=== PATIENT | male | born 1950 | race Caucasian/White ===

== ENCOUNTER → 2016-06-12 | Outpatient (CLI) | payer OTHER, BC ==
[~2016-06-12] MED LIST: ACET-1256 PO; ALL300 PO; AMLO-114 PO; DSWCR TOP; GARL400T4 PO; IRBE1TAB48 PO; KETO2CRE14 TOP; METR0.75 TOP; MOMETASONE 0.1% TOP; MULT-506 PO; OXYC-57 PO; PRVC10 PO; TPRSR/100 PO; URC10 PO; WARF2TAB PO
[2016-06-12 12:29] LABS: BASO % 0.6 %; BASO ABS # 0.04 K/uL (0-0.2); COMPLETE YES; EOS % 4.2 %; HEMATOCRIT 43.3 % (42-52); IG% 0.2 %; LYMPH % 33.2 %; LYMPH ABS # 2.14 K/uL (1.2-3.4); MEAN CORPUSCULAR HEMOGLOBIN 35.1 pg (25-34); MEAN CORPUSCULAR HGB CONC 35.1 g/dl (32-36); MONO % 10.4 %; NEUT % 51.4 %; PLATELET COUNT 215 K/uL (130-400); RED BLOOD COUNT 4.33 M/uL (4.7-6.1); WHITE BLOOD COUNT 6.44 K/uL (4.8-10.8)
[2016-06-12 12:46] LABS: ALT/SGPT 49 U/L (12-78); AST/SGOT 30 U/L (15-37); BLOOD UREA NITROGEN 15 mg/dl (7-18); BUN/CREATININE RATIO 15.4 (10-20); CALCIUM 9.3 mg/dl (8.5-10.1); CARBON DIOXIDE 29 mmol/L (21-32); CHLORIDE 102 mmol/L (98-107); CHOLESTEROL 160 mg/dl (0-200); GLUCOSE 106 mg/dl (70-99); POTASSIUM 4.7 mmol/L (3.5-5.1); SODIUM 140 mmol/L (136-145); URIC ACID 4.8 mg/dl (2.6-7.2)
[2016-06-12 12:49] LABS: ALB/GLOB RATIO 1.1 (0.9-2); ALKALINE PHOSPHATASE 87 U/L (45-117); CHOLESTEROL/HDL RATIO 4.7; HDL CHOLESTEROL 34 mg/dl; LDL CHOLESTEROL CALCULATED 86 mg/dl; TRIGLYCERIDES 201 mg/dl (0-150); VERY LOW DENSITY LIPOPROT CALC 40 mg/dl
[2016-06-12 12:53] LABS: URINE APPEARANCE CLEAR (CLEAR); URINE BILIRUBIN NEG (NEG); URINE COLOR YELLOW; URINE EPITHELIAL CELL AUTO 0-5 /lpf (0-5); URINE NITRITE NEG (NEG); URINE SPECIFIC GRAVITY 1.005 (1.000-1.030); UROBILINOGEN NEG (NEG); ZZUR CULT IF INDIC CLEAN CATCH NO
[2016-06-12 13:04] LABS: ESTIMATED AVERAGE GLUCOSE 114 mg/dl; HA1C FLAG Normal (Normal)
[2016-06-12 13:07] LABS: MANUAL MICROSCOPIC REQUIRED? NO; REVIEW REQ? NO
--- NOTE | 2016-06-16 09:16 | CODING QUERY MEDICAL NECESSITY ---
SUPPORTING DIAGNOSIS NEEDED A supporting diagnosis is required for the test/procedure performed on this patient in order for us to be reimbursed by the patient's insurance. Please provide a supporting diagnosis for the following test/procedure listed below next to the test name along with your signature. *If there is no additional diagnosis for this patient that would support the following test/procedure please document that below next to the test/procedure. Test(s)/Procedure(s) that require a supporting diagnosis: * GLYCATED HEMOGLOBIN DIAGNOSIS: * DOS: 06/12/16 Provider Signature: Date: Thank you [facility] Information Management Once completed, please kindly fax back to [phone] For questions please call [phone]
== END | disposition home or self-care (01) ==
LOC: C.LABBFT 07:37
PROVIDERS: ATTEND Internal Medicine
DX: R73.03 Prediabetes (principal); E78.5 Hyperlipidemia, unspecified; M10.9 Gout, unspecified

== ENCOUNTER → 2016-07-13 | Outpatient (CLI) | payer OTHER, BC | END | disposition home or self-care (01) | LOC: C.RDSM 13:13 | PROVIDERS: ATTEND Physical Medicine & Rehabilitation Sports Medicine | DX: Z96.641 Presence of right artificial hip joint (principal) ==

== ENCOUNTER → 2016-12-18 | Outpatient (CLI) | payer OTHER, BC ==
[2016-12-18 13:22] LABS: ALT/SGPT 42 U/L (12-78); BLOOD UREA NITROGEN 14 mg/dl (7-18); BUN/CREATININE RATIO 14.5 (10-20); CALCIUM 9.4 mg/dl (8.5-10.1); CARBON DIOXIDE 29 mmol/L (21-32); CHLORIDE 102 mmol/L (98-107); CHOLESTEROL 160 mg/dl (0-200); CREATININE 0.93 mg/dl (0.60-1.40); GLUCOSE 102 mg/dl (70-99); POTASSIUM 4.6 mmol/L (3.5-5.1); SODIUM 138 mmol/L (136-145); TRIGLYCERIDES 189 mg/dl (0-150); VERY LOW DENSITY LIPOPROT CALC 38 mg/dl
[2016-12-18 13:26] LABS: ALB/GLOB RATIO 1.1 (0.9-2); ALKALINE PHOSPHATASE 83 U/L (45-117); AST/SGOT 41 U/L (15-37); CHOLESTEROL/HDL RATIO 4.7; HDL CHOLESTEROL 34 mg/dl; LDL CHOLESTEROL CALCULATED 88 mg/dl
== END | disposition home or self-care (01) ==
LOC: C.LABBFT 07:42
PROVIDERS: ATTEND Internal Medicine
DX: Z00.00 Encounter for general adult medical examination without abnormal findings (principal); E78.5 Hyperlipidemia, unspecified

== ENCOUNTER → 2017-02-12 | Outpatient (CLI) | payer OTHER, BC | END | disposition home or self-care (01) | LOC: C.LABBFT 07:03 | PROVIDERS: ATTEND Urology | DX: N20.0 Calculus of kidney (principal) ==

== ENCOUNTER → 2017-06-18 | Outpatient (CLI) | payer OTHER, BC ==
[2017-06-18 12:20] LABS: BASO ABS # 0.07 K/uL (0-0.2); EOS % 6.5 %; EOS ABS # 0.44 K/uL (0-0.5); HEMATOCRIT 44.3 % (42-52); HEMOGLOBIN 15.5 g/dL (14.0-18.0); IG# 0.02 K/uL (0.00-0.02); LYMPH % 32.5 %; MEAN CELL VOLUME 99.6 fL (80-100); MEAN CORPUSCULAR HEMOGLOBIN 34.8 pg (25-34); MEAN PLATELET VOLUME 9.6 fL (7.4-10.4); MONO % 11.1 %; MONO ABS # 0.75 K/uL (0.11-0.59); NEUT % 48.6 %; NEUT ABS # 3.28 K/uL (1.4-6.5); PLATELET COUNT 199 K/uL (130-400); RED CELL DISTRIBUTION WIDTH SD 50.4 fL (36.4-46.3); WHITE BLOOD COUNT 6.76 K/uL (4.8-10.8)
[2017-06-18 12:41] LABS: HEMOGLOBIN A1C 5.9 % (4.5-5.6)
[2017-06-18 13:23] LABS: URIC ACID 4.9 mg/dl (2.6-7.2)
== END | disposition home or self-care (01) ==
LOC: C.LABBFT 07:52
PROVIDERS: ATTEND Internal Medicine
DX: R73.03 Prediabetes (principal); M10.9 Gout, unspecified

== ENCOUNTER → 2017-07-12 | Outpatient (CLI) | payer OTHER, BC | END | disposition home or self-care (01) | LOC: C.RDSM 07:25 | PROVIDERS: ATTEND Physical Medicine & Rehabilitation Sports Medicine | DX: Z47.1 Aftercare following joint replacement surgery (principal); Z96.641 Presence of right artificial hip joint ==

== ENCOUNTER 2022-04-09 05:49 | Inpatient (IN) ==
--- NOTE | 2022-04-03 11:46 | Anesthesiology Consultation ---
Date of Service April 03, 2022 Assessment & Plan (1) Encounter for pre-operative examination: Chart Review Chart Review: Acceptable Risk for Surgery and Patient NOT seen in Pre Admission Testing Consults Requested none History Surgery Operation Date: 04/09/22 07:30 Proposed Procedures p Robotic Laparoscopic Assisted Partial Nephrectomy, Possible Radical Left - Chilango Cuhng DO Height/Weight Height: 5 ft 6.5 in Weight: 104.326 kg Allergies Allergy/AdvReac Type Severity Reaction Status Date / Time atorvastatin AdvReac Unknown MUSCLE Verified 04/03/22 10:15 ACHES chlorthalidone AdvReac Unknown GI Verified 04/03/22 10:15 SYMPTOMS,VOMITING hydrochlorothiazide AdvReac Unknown GI Verified 04/03/22 10:15 SYMPTOMS,VOMITING simvastatin AdvReac Unknown HEADACHE Verified 04/03/22 10:15 Medications Home Medications Medication Instructions Recorded Confirmed Last Taken aspirin 81 mg tablet,delayed 81 mg PO HS 02/15/19 04/03/22 04/13/21 21:00 release hydrocortisone 2 % lotion 1 applic topical BID PRN Rash 02/15/19 04/03/22 02/18/19 ketoconazole 2 % topical cream 1 appln topical BID PRN Rash 02/15/19 04/03/22 02/13/19 mometasone 0.1 % topical cream 1 applic topical BID PRN rash #45 01/31/20 04/03/22 Unknown grams furosemide 40 mg tablet 40 mg PO QAM #30 tabs 08/29/21 04/03/22 Unknown metoprolol succinate 100 mg 100 mg PO HS #90 tabs 08/29/21 04/03/22 Unknown tablet,extended release 24 hr allopurinol 300 mg tablet 300 mg PO QAM #90 tabs 02/27/22 04/03/22 Unknown potassium citrate 10 mEq (1,080 10 meq PO BID #180 tabs 03/17/22 04/03/22 Unknown mg) tablet,extended release blood-glucose meter (OneTouch #1 ea 04/01/22 04/01/22 Unknown Verio Reflect Start kit) irbesartan 300 mg tablet 300 mg PO QAM #90 tabs 04/01/22 04/03/22 Unknown oxycodone-acetaminophen 5 mg-325 1 tab PO Q6H PRN pain #20 tabs 04/01/22 04/03/22 Unknown mg tablet (Percocet) rosuvastatin 5 mg tablet 5 mg PO QAM 04/03/22 04/03/22 Unknown Past Medical History Medical History Branch retinal vein occlusion of left eye under control Carotid stenosis hx-"recently told it sounded okay" Degenerative disc disease Diabetes type 2, controlled diet controlled and watch blood sugars Family history of colon cancer in mother Glaucoma hx; f/u [facility] every 6 months History of colon polyps History of gout History of melanoma HTN (hypertension) Hyperlipidemia Kidney stones hx Mass of kidney LT. Past Family History Family History Mother Diabetes Colorectal cancer Hypertension Brother Motor vehicle accident with no injury Brother Stroke Father Unknown family medical history Other No family history of adverse response to anesthesia Denies family history of Ovarian cancer Prostate cancer Coronary heart disease Myocardial infarction Breast cancer Past Surgical History Surgical History H/O lumbosacral spine surgery History of colonoscopy with polypectomy History of lithotripsy x2 History of Mohs micrographic surgery for skin cancer x3 History of tonsillectomy and adenoidectomy History of total left hip replacement History of total right hip replacement History of wisdom tooth extraction Status post glaucoma surgery bilt Social History Smoking Status: Never smoker Do You Dip or Chew Tobacco: No Hx Alcohol Use: No Alcohol type: beer and wine alcohol intake frequency: other Hx Substance Use: No substance use type: does not use Lab Results Anesthesia Preop Results Results Anesthesia Widget: WBC 6.30 K/ul (4.8-10.8) 04/02/22 Hgb 14.6 g/dl (14.0-18.0) 04/02/22 Hct 41.1 % (40.1-51.0) 04/02/22 Plt 204 K/uL (130-400) 04/02/22 Na 138 mmol/L (136-145) 04/02/22 K 4.5 mmol/L (3.5-5.1) 04/02/22 Cl 103 mmol/L (98-107) 04/02/22 CO2 28 mmol/L (21-32) 04/02/22 BUN 19 mg/dl (6-23) 04/02/22 Creat 0.98 mg/dl (0.6-1.4) 04/02/22 Glucose Level 129 mg/dl (70-99(Fasting)) H 04/02/22 HA1c 6.8 % (4.5-5.6) H 03/25/22 Testing Electrocardiogram Date: 04/02/22 Normal sinus rhythm, rate 73 bpm Normal ECG When compared with ECG of 07-MAR-2015 12:11, No significant change was found Confirmed by Richie García ([id number]) on 04/03/2022 10:50:11 AM Chest X-Ray Date: 04/02/22 Findings: + NAD
[2022-04-09] MEDS ORDERED: LR 15ML/HR IV SCH (06:00)
[2022-04-09] MEDS ORDERED: fentaNYL citrate 100 MCG/2 ML VIAL ONE ×2 (06:41→06:42)
[2022-04-09] MEDS ORDERED: MIDAZOLAM HCL 1 MG/ML 2ML VIAL ONE (06:41)
[2022-04-09] MEDS ORDERED: LIDOCAINE 2% 2 ML VIAL/AMP(20MG/ML) INFIL ONE (06:41)
[2022-04-09] MEDS ORDERED: ROCURONIUM BROMIDE 10 MG/ML 5 ML VIAL IV ONE ×4 (06:41→09:35)
[2022-04-09] MEDS ORDERED: DEXAMETHASONE SOD INJ 4 MG/ML VIAL ONE (06:41)
--- NOTE | 2022-04-09 07:04 | History & Physical Bridge Note ---
Date of Service April 09, 2022 History & Physical Bridge Note I have examined the patient, reviewed the History & Physical and in the interval since the performance of the History & Physical I have noted the following changes of clinical significance: no changes noted
[2022-04-09] MEDS ORDERED: ATROPINE SULFATE 0.1 MG/ML 10ML SYR IV PRN (07:08)
[2022-04-09] MEDS ORDERED: PROMETHAZINE HCL 6.25 MG in SODIUM CHLORIDE 0.9% 50 ML IV PRN (07:08)
[2022-04-09] MEDS ORDERED: HYDROmorphone INJ 1 MG/ML SYRINGE IV PRN (07:08)
[2022-04-09] MEDS ORDERED: ePHEDrine sulfate 50 MG/ML AMP IV PRN (07:08)
[2022-04-09] MEDS ORDERED: fentaNYL citrate 100 MCG/2 ML VIAL IV PRN (07:08)
[2022-04-09] MEDS ORDERED: ONDANSETRON INJ 2 MG/ML 2 ML VIAL IV PRN ×2 (07:08→11:43)
[2022-04-09] MEDS ORDERED: BUPIVACAINE 0.5 % 5 MG/1 ML MPF 30ML VIAL ONE (07:11)
[2022-04-09] MEDS ORDERED: KETAMINE 50 MG/5 ML SYRINGE ONE (07:46)
[2022-04-09] MEDS ORDERED: SUGAMMADEX SODIUM 200 MG/2 ML VIAL IV ONE (07:48)
[2022-04-09] MEDS ORDERED: DexMEDEtomidine HCL IV 100 MCG/ML VIAL IV ONE (07:48)
[2022-04-09] MEDS ORDERED: FLOSEAL HEMOSTATIC MATRIX 10ML TOP ONE (09:10)
[2022-04-09] MEDS ORDERED: TISSEEL FIBRIN SEALANT 10ML TOP ONE (09:10)
[2022-04-09] MEDS ORDERED: SURGICEL ABSORB HEMOSTAT 2IN X 14IN TOP ONE (09:10)
[2022-04-09] MEDS ORDERED: GLYCOPYRROLATE 0.2 MG/ML VIAL ONE (09:34)
[2022-04-09] MEDS ORDERED: ONDANSETRON INJ 2 MG/ML 2 ML VIAL ONE (09:34)
--- NOTE | 2022-04-09 10:10 | Operative Report ---
PG Post Operative Report Pre & Post Diagnosis Operation Date: 04/09/22 07:30 Pre-Op Diagnosis: Renal Mass Post-Op Diagnosis: Renal Mass I identified the patient and participated in the time-out.: Yes Procedure Operation Date: 04/09/22 07:30 Actual Procedures p Robotic Assisted Laparoscopic Radical Nephrectomy, Left(Left) - Chilango Chung DO Surgeon Chilango Chung, II, DO Indirect Sales Representative Shirley Albarran Estimated Blood Loss 60 Findings Consistent with Post-Op Diagnosis Large posterior lower pole mass with concern for involvement of hilar region on intraoperative ultrasound. Early split of renal artery with branch appearing to go into region of the mass. Specimens Radical Left Kidney Drains 18 Fr Roe catheter. Anesthesia Type General Complications none Disposition Disposition: Recovery Room Indications Patient with enhancing left renal mass. Risk and benefits were discussed at length. Patient elected to undergo robotic assisted laparoscopic partial nephrectomy. Description of Procedure The patient was brought to the operative suite and placed under general endotracheal intubation anesthesia in the supine position. The patient was transferred to the lateral position with the operative side up. At this point, the patient prepped and draped in the usual sterile fashion and a timeout was completed. Preoperative antibiotics of Ancef 3 grams had been given. JW's and SCD's were placed on the patient's lower extremities. A catheter was placed using sterile technique. With the time out completed the patient was flexed and the skin was marked. The lateral camera port site was anesthetized. A small incision was made into the skin and subcutaneous tissues. A Varess needle was selected and placed. The needle was easily moved and it was irrigated and aspirated without any issues or concerns for placement. Insufflation commenced. Once insufflated, A camera port was placed. The cavity was insufflated to 12-15 mmHG. A laparoscopic camera was placed and the abdominal cavity inspected. No bleeding, injury, or other concerning features were noted. At this point, the skin was marked for port placement and 8mm working ports were placed. The skin was anesthetized down to fascia and an approx 1cm incision was made to place the 2 x 8mm ports. A fourth robot arm was placed with the same technique in the left lower quadrant. This port was a 12 mm robotic port which functioned as one of the assitant ports as well. An additional tiler's assistant port was also placed in similar fashion under direct visualization in the midline position just superior-lateral to the umbilicus . The robot was positioned and docked. The camera was placed and all trocars were positioned under direct visualization. Shirley Albarran was integral in port placement, camera utilization, and docking procedure. She remained in sterile attire and then proceeded to assist the remainder of the case. Albarran KRISTIN assumed the first beater role for the major portion of mass removal, vessel clamping, and closure of the kidney. At this point, I transitioned to the robotic console. The colon was mobilized medially to expose the retroperitoneum and the area assessed. Adhesions were freed to allow mobilization. A small amount of adhesions were noted from the colon and were freed. Additional adhesions from the spleen were also released. These were dissected with blunt technique. Cautery was used to assist dissection and control bleeding. The retroperitoneal fat was assessed. The ureter and gonadal vein were identified. The ureter was isolated and dissection was taken superiorly. This was followed to the renal pelvis. The Renal Artery and Vein were then cleaned and exposed. The artery had two main branches that appeared to be go to the lower and upper poles respectively. The lower pole branch appeared to go directly towards the mass. The ultrasound probe was placed and the mass further examined. Concern on intraoperative imaging for possible renal hilar vessel involvement due to the large mass with a considerable endophytic portion. The most superior edge of the mass appeared to abut the perihilar fat. Due to this and the location of the large renal artery branch, it was decided that a radical nephrectomy was necessary. The Vessels were assessed a final time. Utilizing the robotic vessel stapling device, the renal arteries and the renal vein were isolated. They were ligated, stapled, and cut utilizing the vascular staple loads. Three loads were necessary to incise each of the vessels. NO major bleeding. No issues. The gonadal and adrenal veins appeared to be spared during the cutting of the renal vein. The kidney was then completely mobilized and freed. Once the inferior, superior, posterior, and lateral edges were freed, A final staple load was used to incise the ureter and inferior retroperiotneal fat. The kidney was displaced. The wound bed was inspected and all bleeding controlled. Surgicel hemostatic agent sheets were placed under the spleen and on the retroperitoneum resection bed. Hemostatic agents were also placed. Hemostatic agent was also placed on the vessel stumps. No major bleeding or other issues. The entire dissection space was inspected one final time. No bleeding or injuries or areas of concern were noted. No tumor or other concerning features were noted. At this point, the robot was undocked and moved away from the patient. The port sites were all assessed laparoscopically. The 12 mm tiler's assistant port site was closed with the Tyree Lovell device. The other ports were assessed and no issues observed. The inferior robotic port incision was opened further exposing fascia which was then opened in order to remove the kidney. The kidney was large due to abundant retroperitoneal fat. This was opened along the anterior rectus sheath. The kidney was then grasped and completely removed. NO major issues or problems. A running 1-0 PDS suture was used to close fascia. A running vicryl 2-0 suture was used to reapproximate the subcutaneous tissue at the incision. The skin at each site was closed with a stapling device. The area was cleaned and bandages placed on each incision. The patient was cleaned and bandaged. The patient was moved back into the supine position The patient was cleaned, aroused from anesthesia, and transferred to the pacu in stable condition having tolerated the procedure well with no complications. I was present and participated in all aspects of the procedure. KRISTIN Piper was critical in the portions as mentioned above. Will plan to observe postoperatively and monitor. Roe to be removed in the morning. Likely followup in approx 1 week for staple removal and 2-3 weeks to discuss pathology. I attest to the content of the Intraoperative Record and any orders documented therein. Any exceptions are noted below.
[2022-04-09 11:02] LABS: BUN Creatinine Ratio 14.6 (10-20); Calcium 8.3 mg/dl (8.5-10.1); Creatinine Clr Calc Pharmacy 73.2 ml/min; Est GFR (African American) 83.1 ml/min; Est GFR (Non-African American) 71.7 ml/min; Potassium 5.5 mmol/L (3.5-5.1)
[2022-04-09] MEDS ORDERED: MoRPHine SULFATE 2 MG/ML CARP IV PRN (11:43)
[2022-04-09] MEDS ORDERED: MoRPHine SULFATE 4 MG/ML 1 ML CARP\\VIAL IV PRN (11:43)
[2022-04-09] MEDS ORDERED: ACETAMINOPHEN 325 MG TAB PO PRN (11:43)
[2022-04-09] MEDS ORDERED: oxyCODONE HCL IR 5 MG TAB (IMMEDIATE RELEASE) PO PRN ×2 (11:43)
--- NOTE | 2022-04-09 12:29 | Anesthesiology Progress Note ---
Date of Service April 09, 2022 Anesthesia Post Procedure Vital Signs Vital Signs: Temp Pulse Resp BP Pulse Ox O2 Del Method O2 Flow Rate 04/09/22 11:45 89 16 149/68 H 97 Nasal Cannula 2 04/09/22 11:30 85 15 148/92 H 95 Nasal Cannula 2 04/09/22 11:15 83 12 135/90 94 Room Air 04/09/22 11:00 87 15 135/79 93 Room Air 04/09/22 10:50 37.1 C 82 13 128/60 94 Room Air 04/09/22 10:40 79 16 135/76 93 Room Air 04/09/22 10:30 79 18 122/80 98 Oxymask 5 04/09/22 10:20 80 19 128/77 99 Oxymask 5 04/09/22 10:10 36.2 C L 84 22 128/72 96 Oxymask 5 04/09/22 06:30 36.6 C 94 H 20 149/80 H 96 Room Air Transfer of Care Handoff Completed per policy Notes Mental Status: alert / awake / arousable and participated in evaluation Patient Amnestic to Procedure: Yes Nausea / Vomiting: adequately controlled Pain: adequately controlled Airway Patency, RR, SpO2: stable & adequate BP & HR: stable & adequate Hydration State: stable & adequate Anesthetic Complications: no major complications apparent and Pt Satisfied with anesthetic care
[2022-04-09] MEDS: LACTATED RINGER'S 1,000 ML IV SCH ×2 (13:16→22:28)
[2022-04-09 13:38] LABS: Basophils # (auto) 0.04 K/uL (0-0.2); Basophils % (auto) 0.4 %; Eosinophils # (auto) 0.09 K/uL (0-0.50); Hematocrit (blood only) 34.6 % (42.0-52.0); Hemoglobin 12.1 g/dl (14.0-18.0); Immature Granulocytes # (auto) 0.04 K/uL (0.01-0.20); Immature Granulocytes % (auto) 0.4 %; Lymphocytes # (auto) 0.98 K/uL (1.2-3.4); Lymphocytes % (auto) 10.6 %; Mean Corpuscular Hemoglobin 35.5 pg (25.0-34.0); Mean Corpuscular Volume 101.5 fL (80.0-100.0); Mean Platelet Volume 9.6 fL (9.4-12.4); Monocytes # (auto) 0.21 K/uL (0.11-0.59); Monocytes % (auto) 2.3 %; Neutrophils # (auto) 7.92 K/uL (1.40-6.50); Neutrophils % (auto) 85.3 %; Platelet Count 149 K/uL (130-400); RDW Coefficient of Variation 13.2 % (11.5-14.5); RDW Standard Deviation 49.6 fL (36.4-46.3); Red Blood Count 3.41 M/uL (4.70-6.10); White Blood Count 9.28 K/ul (4.8-10.8)
--- NOTE | 2022-04-09 13:59 | Electrocardiogram Report ---
Test Reason : Blood Pressure : / mmHG Vent. Rate : 087 BPM Atrial Rate : 087 BPM P-R Int : 166 ms QRS Dur : 082 ms QT Int : 376 ms P-R-T Axes : -02 -05 028 degrees QTc Int : 452 ms Sinus rhythm with Premature supraventricular complexes Otherwise normal ECG When compared with ECG of 02-APR-2022 08:44, Premature supraventricular complexes are now Present Confirmed by Ace Maciel ([id number]) on 04/09/2022 1:58:44 PM Referred By: Chilango Chung Confirmed By:Kyle Maciel
[2022-04-09] MEDS: ceFAZolin 2000MG 2,000 MG/15 ML SYR IV SCH ×2 (16:35→22:30)
--- NOTE | 2022-04-09 19:06 | Hospitalist Consultation ---
Date of Consultation April 09, 2022 History of Present Illness Attending Physician: Chilango Chung, ELANA, DO Allergies Allergy/AdvReac Type Severity Reaction Status Date / Time atorvastatin AdvReac Unknown MUSCLE Verified 04/09/22 06:32 ACHES chlorthalidone AdvReac Unknown GI Verified 04/09/22 06:32 SYMPTOMS,VOMITING hydrochlorothiazide AdvReac Unknown GI Verified 04/09/22 06:32 SYMPTOMS,VOMITING simvastatin AdvReac Unknown HEADACHE Verified 04/09/22 06:32 Home Medications Medication Instructions Recorded Confirmed Type aspirin 81 mg tablet,delayed 81 mg PO HS 02/15/19 04/09/22 History release hydrocortisone 2 % lotion 1 applic topical BID PRN Rash 02/15/19 04/09/22 History ketoconazole 2 % topical cream 1 appln topical BID PRN Rash 02/15/19 04/09/22 History mometasone 0.1 % topical cream 1 applic topical BID PRN rash #45 01/31/20 04/09/22 Rx grams furosemide 40 mg tablet 40 mg PO QAM #30 tabs 08/29/21 04/09/22 Rx metoprolol succinate 100 mg 100 mg PO HS #90 tabs 08/29/21 04/09/22 Rx tablet,extended release 24 hr allopurinol 300 mg tablet 300 mg PO QAM #90 tabs 02/27/22 04/09/22 Rx potassium citrate 10 mEq (1,080 10 meq PO BID #180 tabs 03/17/22 04/09/22 Rx mg) tablet,extended release blood-glucose meter (OneTouch #1 ea 04/01/22 04/01/22 Rx Verio Reflect Start kit) irbesartan 300 mg tablet 300 mg PO QAM #90 tabs 04/01/22 04/09/22 Rx oxycodone-acetaminophen 5 mg-325 1 tab PO Q6H PRN pain #20 tabs 04/01/22 04/09/22 Rx mg tablet (Percocet) rosuvastatin 5 mg tablet 5 mg PO QAM 04/03/22 04/09/22 History multivitamin 1 tab PO QAM 04/09/22 04/09/22 History Patient History Medical History Branch retinal vein occlusion of left eye under control Carotid stenosis hx-"recently told it sounded okay" Degenerative disc disease Diabetes type 2, controlled diet controlled and watch blood sugars Family history of colon cancer in mother Glaucoma hx; f/u [facility] every 6 months History of colon polyps History of gout History of melanoma HTN (hypertension) Hyperlipidemia Kidney stones hx Mass of kidney LT. Surgical History H/O lumbosacral spine surgery History of colonoscopy with polypectomy History of lithotripsy x2 History of Mohs micrographic surgery for skin cancer x3 History of tonsillectomy and adenoidectomy History of total left hip replacement History of total right hip replacement History of wisdom tooth extraction Status post glaucoma surgery bilt Family History Mother Diabetes Colorectal cancer Hypertension Brother Motor vehicle accident with no injury Brother Stroke Father Unknown family medical history Other No family history of adverse response to anesthesia Denies family history of Ovarian cancer Prostate cancer Coronary heart disease Myocardial infarction Breast cancer Social History Smoking Status: Never smoker Second Hand Exposure: No; Hx Alcohol Use: No Hx Substance Use: No Preferred Language: Telugu Communication Ability: Effective Visual Impairment: No Limitations Hearing Ability: Normal Executive Pilot Required: No Beliefs That Will Affect Care: None marital status: Current Living Situation: Spouse current occupational status: retired Feels Safe at Home: Yes Childhood Exposure to Second-Hand Smoke: No caffeine: No during the past year weight has: remained stable Dental Care, Regularly: Yes Physical Activity Frequency: Daily Physical Activity Frequency Comment: stationary bike x2 daily Seatbelt Use: always Sunscreen Use: Yes Assistive Devices: Glasses Physical Exam Physical Exam: Head and ENT no thyroid enlargement trachea midline Cardiovascular S1-S2 are normal no S3 Lungs bilateral air entry fair no wheezing Abdomen soft nondistended positive bowel sounds no rebound tenderness Extremity shows trace edema Neurologically no focal deficits Skin shows no rash no cyanosis Results & Data Results & Data ([facility]) Vital Signs (Past 12 Hours) Vital Signs Temp Pulse Pulse Resp BP Pulse Ox O2 Del Method 04/09/22 16:12 37.1 C 100 H 18 167/79 H 93 Room Air 04/09/22 14:56 37.2 C 98 H 20 156/86 H 94 Room Air 04/09/22 13:53 36.7 C 102 H 20 155/68 H 94 Room Air 04/09/22 13:29 37.2 C 99 H 20 149/65 H 93 Room Air 04/09/22 12:59 37 C 95 H 18 149/70 H 93 Room Air 04/09/22 11:45 89 16 149/68 H 97 Nasal Cannula 04/09/22 12:15 37 C 87 17 147/84 H 96 Nasal Cannula 04/09/22 11:30 85 15 148/92 H 95 Nasal Cannula 04/09/22 11:15 83 12 135/90 94 Room Air 04/09/22 11:00 87 15 135/79 93 Room Air 04/09/22 10:50 37.1 C 82 13 128/60 94 Room Air 04/09/22 10:40 79 16 135/76 93 Room Air 04/09/22 10:30 79 18 122/80 98 Oxymask 04/09/22 10:20 80 19 128/77 99 Oxymask 04/09/22 10:10 36.2 C L 84 22 128/72 96 Oxymask O2 Flow Rate 04/09/22 16:12 04/09/22 14:56 04/09/22 13:53 04/09/22 13:29 04/09/22 12:59 04/09/22 11:45 2 04/09/22 12:15 2 04/09/22 11:30 2 04/09/22 11:15 04/09/22 11:00 04/09/22 10:50 04/09/22 10:40 04/09/22 10:30 5 04/09/22 10:20 5 04/09/22 10:10 5 Laboratory Results Short CBC 04/09/22 Range/Units 10:16 WBC 9.28 (4.8-10.8) K/ul Hgb 12.1 L (14.0-18.0) g/dl Hct 34.6 L (42.0-52.0) % Plt Count 149 (130-400) K/uL BMP 04/09/22 10:16 Sodium 138 Potassium 5.5 H Chloride 108 H Carbon Dioxide 24 BUN 15 Creatinine 1.03 Glucose 177 H Calcium 8.3 L PG Care Time/CCT Total # of Minutes Spent Total Time Spent with Patient: Total time spent is greater than 50% in coordination of care (as documented) at patient's floor/unit and/or counseling patient: Coding
[2022-04-09] MEDS: HEPARIN SOD 5,000 UNIT/0.5 ML VIAL SQ SCH (19:52)
[2022-04-09] MEDS: DOCUSATE SODIUM 100 MG CAP PO SCH (20:02)
[2022-04-09] MEDS ORDERED: POTASSIUM CITRATE 10 MEQ TAB PO SCH (21:00)
[2022-04-09] MEDS ORDERED: METOPROLOL SUCC 50MG EXT REL TAB PO SCH (21:00)
[2022-04-10] MEDS: HEPARIN SOD 5,000 UNIT/0.5 ML VIAL SQ SCH (07:50)
[2022-04-10 07:53] LABS: Basophils # (auto) 0.01 K/uL (0-0.2); Basophils % (auto) 0.1 %; Eosinophils # (auto) 0.01 K/uL (0-0.50); Eosinophils % (auto) 0.1 %; Hematocrit (blood only) 34.1 % (42.0-52.0); Hemoglobin 11.9 g/dl (14.0-18.0); Immature Granulocytes # (auto) 0.04 K/uL (0.01-0.20); Immature Granulocytes % (auto) 0.4 %; Lymphocytes # (auto) 1.56 K/uL (1.2-3.4); Lymphocytes % (auto) 14.5 %; Mean Corpuscular Hemoglobin 35.1 pg (25.0-34.0); Mean Corpuscular Hgb Conc 34.9 g/dL (32.0-36.0); Mean Corpuscular Volume 100.6 fL (80.0-100.0); Mean Platelet Volume 9.5 fL (9.4-12.4); Monocytes # (auto) 1.27 K/uL (0.11-0.59); Monocytes % (auto) 11.8 %; Neutrophils # (auto) 7.88 K/uL (1.40-6.50); Neutrophils % (auto) 73.1 %; Platelet Count 147 K/uL (130-400); RDW Coefficient of Variation 13.3 % (11.5-14.5); RDW Standard Deviation 49.1 fL (36.4-46.3); Red Blood Count 3.39 M/uL (4.70-6.10); White Blood Count 10.77 K/ul (4.8-10.8)
[2022-04-10] MEDS: DOCUSATE SODIUM 100 MG CAP PO SCH (07:56)
[2022-04-10] MEDS: LACTATED RINGER'S 1,000 ML IV SCH (08:07)
[2022-04-10 08:16] LABS: Calcium 8.6 mg/dl (8.5-10.1); Potassium 4.5 mmol/L (3.5-5.1)
[2022-04-10 08:22] LABS: BUN Creatinine Ratio 13.1 (10-20); Creatinine Clr Calc Pharmacy 49.3 ml/min; Est GFR (African American) 51.5 ml/min; Est GFR (Non-African American) 44.5 ml/min
[2022-04-10] MEDS ORDERED: IRBESARTAN 150 MG TAB PO SCH (09:00)
[2022-04-10] MEDS ORDERED: FUROSEMIDE 40 MG TAB PO SCH (09:00)
[2022-04-10] MEDS ORDERED: allopurinoL 300 MG TAB PO SCH (09:00)
[2022-04-10] MEDS ORDERED: ROSUVASTATIN CALCIUM 5 MG TAB PO SCH (09:00)
--- NOTE | 2022-04-10 10:22 | Urology Progress Note ---
Date of Service April 10, 2022 Assessment & Plan (1) Renal mass: Plan 72yo/M admitted s/p robotic left nephrectomy for possible malignancy. -POD #1 s/p Robotic Assisted Laparoscopic Radical Left Nephrectomy. -Hospital team consulted postoperatively for medical management due to co morbidities. Appreciate consultation. -Pt feeling well this morning, progressing as expected. -Afebrile and hemodynamically stable. -Labs reviewed-WBC 10.77, hemoglobin 11.9, creatinine up to 1.53 today which is not unexpected. -Roe catheter intact, draining clear yellow urine. Output is appropriate. Plan- -Advance diet. -Remove Roe catheter and monitor for void. -Encourage ambulation. -Continue supportive care, pain management prn. -Will reassess this afternoon. Anticipate discharge home later today or tomorrow pending patient progression. Admission and Anticipated Discharge Date Admission Date: April 09, 2022 Subjective Patient examined at bedside this AM. Awake, resting in bed on arrival. No acute distress. No acute issues overnight. Reports minimal pain. Roe draining clear yellow urine. Tolerating clear liquids, no nausea or vomiting. Does report feeling bloated last night, but improved this morning.+Belching. Ambulated in hallway last night as well without issue. Denies fevers or chills. Review of Systems Constitutional: as per Subjective / HPI; no fever and no chills Cardiovascular: no chest pain, no dyspnea and no lightheadedness Gastrointestinal: as per Subjective / HPI and + belching; no nausea and no vomiting Genitourinary: + as per Subjective / HPI Physical Exam Constitutional: well developed and well nourished; no acute distress Respiratory: normal respiratory effort; no respiratory distress and no labored breathing Gastrointestinal (Abdomen): Percussion/Palpation: abdomen soft; abdomen non tender Incisions appropriate. Gauze dressing intact. No drainage noted. Musculoskeletal: Head/Neck/Chest: normocephalic Skin: No visible rashes or lesions to exposed skin areas Neurologic: moves all extremities and awake Psychiatric: A+Ox3, euthymic affect Genitourinary: Roe catheter intact, draining clear yellow urine Results & Data ([facility]) Vital Signs (Past 12 Hours) Vital Signs Temp Pulse Pulse Resp BP Pulse Ox O2 Del Method 04/10/22 07:30 37.5 C 78 16 153/77 H 94 Room Air 04/10/22 02:38 36.4 C L 83 16 148/80 H 95 Room Air 04/09/22 22:29 36.7 C 91 H 16 154/78 H 95 Room Air PG Care Time/CCT Total # of Minutes Spent Total Time Spent with Patient: Total time spent is greater than 50% in coordination of care (as documented) at patient's floor/unit and/or counseling patient: Coding Level of Care Code None Diagnoses Renal mass N28.89
--- NOTE | 2022-04-10 16:06 | Communication Note ---
Date of Service: April 10, 2022 Was told patient was going to be discharged today. Hospitalist consult cancelled.
--- NOTE | 2022-04-10 16:16 | Hospitalist Progress Note ---
Date of Service April 10, 2022 Assessment & Plan (1) Hypertension: Plan: Controlled. Continue current medical management (2) Hyperlipidemia: Plan: Controlled. Continue current medical management (3) Gout, joint: Plan: Controlled. Continue current medical management (4) Renal mass: Plan: Status post laparoscopic left nephrectomy on April 09. Postoperative day #1. Hemoglobin remains stable. (5) Diabetes type 2, controlled: Plan: Diabetic diet. Sliding scale coverage as needed (6) Acute kidney injury: Plan: Creatinine bumped to 1.5 noted today, April 10. This probably should be rechecked as an outpatient. Otherwise stable. Plan Discharge to home today, April 10, by the primary service Admission and Anticipated Discharge Date Admission Date: April 09, 2022 Subjective The patient was seen earlier this morning prior to discharge by the primary service. He is medically stable although his creatinine did bump to 1.5 and probably should be followed further as an outpatient. He is medically stable however. Postoperative day 1. Pathology report is pending. Review of Systems 2 Review of Systems: Constitutional-no fever or chills ENT-no blurred vision, no double vision, no epistaxis, no sore throat Respiratory-no cough, no wheezing, no shortness of breath Cardiac-no palpitations, no chest pain, no syncope GI-no nausea, vomiting, diarrhea, melena, hematochezia -no urinary retention, no urinary incontinence, no dysuria, no hematuria Musculoskeletal-no joint pain, no muscle tenderness Skin-no bruising, no rashes, no pruritus Neuro-no isolated weakness, no paresthesia, no weakness Psych-no depression, no anxiety Physical Exam Physical Exam: General-alert and oriented x3, no fevers, no chills HEENT-head atraumatic and normocephalic, pupils equal and reactive to light, extraocular muscles intact Neck-no lymphadenopathy or thyromegaly, trachea midline Chest-clear to auscultation percussion. No rales wheezing or rhonchi Cardiac-regular rate and rhythm, normal S1 and S2 Abdomen-normal bowel sounds, nontender, no hepatosplenomegaly. Laparoscopic surgical sites are unremarkable Extremities-no cyanosis, clubbing, or edema Neuro-cranial nerves II through XII intact, motor and sensory function within normal limits, strength symmetrical , no focal deficits Psych-normal affect, normal mood Results & Data Results & Data ([facility]) Vital Signs (Past 12 Hours) Vital Signs Temp Pulse Resp BP Pulse Ox O2 Del Method 04/10/22 07:30 37.5 C 78 16 153/77 H 94 Room Air Laboratory Results 04/10/22 07:25 04/10/22 07:25 PG Care Time/CCT Total # of Minutes Spent Total Time Spent with Patient: Total time spent is greater than 50% in coordination of care (as documented) at patient's floor/unit and/or counseling patient: Coding Level of Care Code 40781 SUB INP/OBS CARE 3/50MIN Diagnoses Hypertension I10 Hyperlipidemia E78.5 Gout, joint M10.9 Renal mass N28.89 Diabetes type 2, controlled E11.9 Acute kidney injury N17.9
--- NOTE | 2022-04-10 23:10 | Discharge Summary ---
Date of Service April 10, 2022 Admission HPI Per Admitting Provider 72 year old male with a left renal mass admitted for left partial robot-assisted laparoscopic partial nephrectomy versus radical Admission Exam Per Admitting Provider General: Alert in no acute distress. HEENT: Inspection normal Psychologic: Normal affect. Respiratory: Nonlabored. No use of accessory muscles. Skin: [place] and Dry. No rashes or visible lesions. Abdomen: Soft, nontender Principal Diagnosis Renal Mass Discharge Exam Constitutional well developed and well nourished; no acute distress Respiratory normal respiratory effort; no respiratory distress and no labored breathing Gastrointestinal (Abdomen) Percussion/Palpation: abdomen soft; abdomen nontender Incisions appropriate Musculoskeletal Head/Neck/Chest: normocephalic Neurologic moves all extremities and awake Psychiatric A+Ox3, euthymic affect Discharge Data Allergies Allergy/AdvReac Type Severity Reaction Status Date / Time atorvastatin AdvReac Unknown MUSCLE Verified 04/09/22 06:32 ACHES chlorthalidone AdvReac Unknown GI Verified 04/09/22 06:32 SYMPTOMS,VOMITING hydrochlorothiazide AdvReac Unknown GI Verified 04/09/22 06:32 SYMPTOMS,VOMITING simvastatin AdvReac Unknown HEADACHE Verified 04/09/22 06:32 Procedures Performed Operation Date: 04/09/22 07:30 Actual Procedures p Robotic Assisted Laparoscopic Radical Nephrectomy, Left(Left) - Chilango Chung DO Hospital Course (1) Renal mass: Plan 72yo/M admitted s/p robotic left nephrectomy for possible malignancy. -POD #1 s/p Robotic Assisted Laparoscopic Radical Left Nephrectomy. -Pt tolerated procedure well. No acute issues postoperatively. -Hospital team consulted postoperatively for medical management due to comorbidities. -Remained afebrile and hemodynamically stable. -Labs appropriate -WBC 10.77, hemoglobin 11.9, creatinine up to 1.53 today which is not unexpected. -Roe catheter removed POD #1. Pt voiding spontaneously following catheter removal. -Tolerated diet. -Ambulated without issue. -Minimal pain. -Discussed with hospital team () - Ok for discharge from their perspective. -Stable for discharge home postop day #1. -Discharge instructions were reviewed, orders placed. -Postoperative follow-up appointments in place. Total Time Total Time Spent Total Time Spent (In Minutes): 15 Discharge Plan Discharge Items Patient Disposition: Home - Self-Care Reason For Visit: Renal Mass Discharge Diagnosis: Renal Mass Activity: Per Instructions section Lifting: No more than 25 pounds Bathing Comment: OK to shower. No tub baths or soaks. Sexual Activity: Wait until after follow-up appointment Exercise/Sports: Wait until after follow-up appointment Driving/Machine Use: Do not drive if taking prescription pain medication. Non-emergency contact: Surgeon and Urologist Call non-emergency contact if: you have any medication questions, your pain is not controlled, your pain is worsening, you have a fever, your wound has increased redness, your wound has increased drainage and your wound pain has increased Follow-up/Referrals: Ace Corea MD [Primary Care Provider] - Chilango Chung DO [Physician] - 04/28/22 8:45 am (phone visit) Urology,Nurse [FAKE FOR SCHEDULES] - 04/16/22 9:00 am Diet: Carb Consistent or DM2 Addtl Attending Provider Instructions: Please take all medications as prescribed and keep all follow-ups as scheduled. Please call our office at [phone] with any questions, concerns or need to reschedule appointments for any reason. We are happy to assist you. You may resume your aspirin in the next 1-2 days. Recovering at home: We recommend having someone with you for the first few days after surgery to help care for you. It is okay to shower tomorrow. Please avoid swimming, bathing or using hot tub until incisions are well healed. Avoid driving until you are not requiring pain medication any further. Walk at least a few times a day. Increase your distance, as you feel able. Stairs in your home are okay. Please avoid strenuous or sexual activity until your follow-up. We recommend using stool softener (i.e. Colace) to prevent constipation and straining, especially the first two weeks post operatively. Call [facility] at [phone] if you experience: Chest pain or trouble breathing (call 381 or go to the hospital). Fever of 101F or higher Symptoms of infection at incision site, including redness or swelling, warmth, or bad-smelling drainage Pain that is not controlled with medicines Unable to urinate Pending Studies at Discharge: Yes (pathology) Stand-Alone Forms: [email or web address], Smoking Cessation Medications and DC Order Prescriptions: New docusate sodium [Colace] 100 mg capsule 100 mg PO BID Qty: 30 0RF Rx Instructions: Take twice daily for 2 weeks, then as needed thereafter Continued potassium citrate 10 mEq (1,080 mg) tablet extended release 10 meq PO BID Qty: 180 3RF mometasone 0.1 % cream 1 applic TOP BID PRN (Reason: rash) Qty: 45 3RF allopurinol 300 mg tablet 300 mg PO QAM Qty: 90 3RF irbesartan 300 mg tablet 300 mg PO QAM Qty: 90 3RF (DME) blood-glucose meter [Pin-DigitalTouch Verio Reflect Start] Kit See Rx Instructions .ROUTE Qty: 1 0RF Rx Instructions: As directed oxycodone-acetaminophen [Percocet] 5-325 mg tablet 1 tab PO Q6H PRN (Reason: pain) Qty: 20 0RF Label Comments: only for kidney stones furosemide 40 mg tablet 40 mg PO QAM Qty: 30 5RF metoprolol succinate 100 mg tablet extended release 24 hr 100 mg PO HS Qty: 90 3RF hydrocortisone 2 % Lotion 1 applic TOPICAL BID PRN (Reason: Rash) ketoconazole 2 % cream 1 appln TOP BID PRN (Reason: Rash) aspirin 81 mg Tablet,Delayed Release (Dr/Ec) 81 mg PO HS Rx Instructions: stop 04/01/22 for surgery rosuvastatin 5 mg tablet 5 mg PO QAM multivitamin Tablet 1 tab PO QAM Discharge Orders: Discharge Order (Routine); Ordered 04/10/22 Ordered By: Shirley Machado/Other Patient Handouts: High Blood Sugar (Hyperglycemia), Hypoglycemia (Low Blood Sugar), Managing Type 2 Diabetes, Diabetes: Meal Planning Admission Data Admit Date/Time: 04/09/22 10:11 Attending Provider: Chilango Chung Admit Provider: Chilango Chung Primary Care Provider: Ace Corea Other Interventions: Discharge Summary Assessment (RN) Last Done: 04/10/22 14:20 Coding Level of Care Code HOSP INP/OBS DISCH 30 MIN/LESS Diagnoses Renal mass N28.89
== END 2022-04-10 15:36 | disposition home or self-care (01) | DRG 661 ==
LOC: ASU 05:49 → PACUINP 10:11 → 3N 13:00

== ENCOUNTER 2023-08-28 21:19 | Observation (INO) ==
[2023-08-28 21:56] LABS: Appearance Urine Clear (Clear); Bacteria Urine Automated None Seen (None Seen); Bilirubin Urine Negative (Negative); Blood Urine Trace (Negative); Cast Urine Automated 0-2 /lpf (0-2); Color Urine Yellow; Epithelial Cell Urine Auto 0-2 /hpf (0-2); Glucose Urine UA 3+ (Negative); Ketones Urine Negative (Negative); Leukocyte Esterase Urine Negative (Negative); Nitrite Urine Negative (Negative); Protein Urine Negative (Negative); RBC Urine Automated 0-2 /hpf (0-2); Urobilinogen Urine Negative (Negative); WBC Urine Automated 0-5 /hpf (0-5)
[2023-08-28] MEDS: SODIUM CHLORIDE 0.9% 1,000 ML IV ONE (22:11)
[2023-08-28 22:15] LABS: Basophils # (auto) 0.05 K/uL (0.00-0.20); Basophils % (auto) 0.9 %; Eosinophils # (auto) 0.24 K/uL (0.00-0.50); Eosinophils % (auto) 4.1 %; Hematocrit (blood only) 34.8 % (42.0-52.0); Hemoglobin 12.3 g/dl (14.0-18.0); Immature Granulocytes # (auto) 0.01 K/uL (0.01-0.20); Immature Granulocytes % (auto) 0.2 %; Lymphocytes % (auto) 17.2 %; Mean Corpuscular Hemoglobin 34.5 pg (25.0-34.0); Mean Corpuscular Hgb Conc 35.3 g/dL (32.0-36.0); Mean Corpuscular Volume 97.5 fL (80.0-100.0); Mean Platelet Volume 10.8 fL (9.4-12.4); Monocytes # (auto) 0.48 K/uL (0.11-0.59); Monocytes % (auto) 8.2 %; Neutrophils # (auto) 4.04 K/uL (1.40-6.50); Neutrophils % (auto) 69.4 %; Platelet Count 190 K/uL (130-400); RDW Coefficient of Variation 13.4 % (11.5-14.5); RDW Standard Deviation 47.8 fL (36.4-46.3); Red Blood Count 3.57 M/uL (4.70-6.10); White Blood Count 5.82 K/ul (4.8-10.8)
--- NOTE | 2023-08-28 22:21 | Emergency Department Note ---
Impression & Plan Hyperosmolar hyperglycemic state (HHS), Acute on chronic renal insufficiency, Increased urinary frequency ED Provider Note NAME: LIDIA RODAS AGE: 73 SEX: M : 1950 ARRIVES VIA: Walk-In INFORMANT: Patient ED PROVIDER(S): Corby Bishop MD CHIEF COMPLAINT: Chills, weakness. PLAN: Disposition: Admit MEDICAL DECISION MAKING: The patient is a pleasant 73 gentleman with a past medical history of type 2 diabetes, hypertension, nephrolithiasis, solitary kidney status post nephrectomy for clear-cell renal cell carcinoma, CKD who presents to the emergency department via walk-in, by his for evaluation of acute onset generalized weakness and shaking prior to arrival. Patient reports he has been urinating more frequently over the past 24 hours. Denies any burning or blood in his urine. He denies any cough, congestion, chest pain or shortness of breath. On my evaluation the patient is no acute stress, afebrile blood pressure 170/90s and vital signs otherwise stable. Appears clinically dry. Abdomen is nontender. WBC within normal limits without neutrophilia or left shift. H/H similar to prior values. Platelets within normal limits. Creatinine is acutely impaired from baseline CKD with creatinine of 2.45 up from baseline of approximately 1.5. Chemistry without metabolic acidosis. VBG unremarkable. However glucose is severely elevated at 1039 with normal bicarbonate of 24. Sodium is 124 and corrects to upper 140s for hyperglycemia. Serum osmolality is concentrated at 339 suggestive of component of HHS. Initial lactic acid 4.4, improving to 2.9 following initial observation. Total bilirubin within normal limits. AST is 40, nonspecific and is similar to prior. LFTs otherwise unremarkable. Lipase is margin above normal at 88, nonspecific. Procalcitonin is nonelevated. UA is without convincing evidence of infection. CT of the chest and abdomen pelvis were performed and were negative for acute abnormalities. Symptoms related to acute worsening of diabetes with HHS. IV fluid hydration administered cautiously given acute on chronic renal insufficiency with initial 1 L normal saline. 30 cc/KG deferred. IV fluid maintenance ordered at 250 cc/h with half-normal saline and 20 of K. Insulin drip ordered. Case was discussed with Dr. Mccarthy, [facility] admitting resident, with Dr. Eng, [facility] hospitalist who will evaluate the patient for admission. Further management per admitting team. Triage Nursing notes reviewed and agree them. Prior/external medical records reviewed Vital Signs: reviewed Differential diagnosis: Infection, dehydration, metabolic abnormality, hypo/hyperglycemia, electrolyte disturbance, anemia, hypoxia, cardiac sources, intracerebral event, toxicologic, neurologic, as well as other pathologies. ER treatment provided: See below. Diagnostics interpreted by me: Cardiac Monitoring: An order for continuous cardiac monitoring was placed and demonstrated normal sinus rhythm, 72 bpm, no ectopy. Laboratory studies: See below Imaging studies: See below Consultation(s): Dr. Mccarthy [facility] admitting resident, with Dr. Eng [facility] hospitalist HPI: The patient is a pleasant 73 gentleman with a past medical history of type 2 diabetes, hypertension, nephrolithiasis, solitary kidney status post nephrectomy for clear-cell renal cell carcinoma, CKD who presents to the emergency department via walk-in, by his for evaluation of acute onset generalized weakness and shaking prior to arrival. Patient reports he has been urinating more frequently over the past 24 hours. Denies any burning or blood in his urine. He denies any cough, congestion, chest pain or shortness of breath. ROS: See above HPI for pertinent positives & negatives. A total of 10 systems reviewed and were otherwise negative. VITALS:See Below PHYSICAL EXAMINATION: GENERAL: Awake, alert, fatigued-appearing, in no distress. BMI 34.3. HENT: Normocephalic, atraumatic. Oropharynx dry mucous membranes. EYES: Normal conjunctiva. Sclera non-icteric. EOMI. No nystamgus. PEARRL. NECK: Supple. No nuchal rigidity. FROM. No JVD. RESPIRATORY: Clear to auscultation. CARDIAC: Regular rate, normal rhythm. Extremities warm and well perfused. Pulses equal. ABDOMEN: Soft, non-distended. No tenderness to palpation. No rebound or guarding. No masses. MUSCULOSKELETAL: Chest examination reveals no tenderness. The back is symmetrical on inspection without obvious abnormality. There is no CVA tenderness to palpation. No joint edema. LOWER EXTREMITIES: Calves are equal size bilaterally and non-tender. No edema. No discoloration. NEURO: Normal sensorium. No sensory or motor deficits noted. SKIN: No rash or jaundice noted. ED COURSE: Critical Care: I have personally spent greater than 45 minutes of critical care time in the direct management of this patient. This includes bedside care, interpretation of diagnostic studies, and testing, discussion with consultants, patient, and family members, and other required patient management activities. This 45 minutes is in excess of all separately billable procedures. Corby Bishop MD Past Med/Surg History Problem List (Updated 08/29/23 @ 05:50 by Corby Bishop MD) Increased urinary frequency (Acute) Acute on chronic renal insufficiency (Acute) Type 2 diabetes mellitus Hyperosmolar hyperglycemic state (HHS) (Acute) Abnormal CT scan of lung Mediastinal adenopathy ASCVD (arteriosclerotic cardiovascular disease) Renal cell cancer Tubular adenoma of colon (Acute) Rosacea (Acute) Psoriasis (Acute) Osteoarthritis of hip (Acute) Nephrolithiasis (Acute) Hypertension (Acute) Hyperlipidemia (Acute) Gout, joint (Acute) Elevated ferritin (Acute) Carotid stenosis (Acute) bruit right carotid artery Benign prostate hyperplasia (Acute) Nonalcoholic fatty liver disease (Chronic) Melanoma of back Malignant melanoma of left ear Melanoma of right upper arm Iron overload Thoracic lymphadenopathy Diabetes type 2, controlled Medical History Branch retinal vein occlusion of left eye Carotid stenosis Degenerative disc disease Diabetes type 2, controlled Family history of colon cancer in mother Glaucoma History of colon polyps History of gout History of melanoma HTN (hypertension) Hyperlipidemia Kidney stones Mass of kidney Surgical History H/O lumbosacral spine surgery History of colonoscopy with polypectomy History of lithotripsy History of Mohs micrographic surgery for skin cancer History of tonsillectomy and adenoidectomy History of total left hip replacement History of total right hip replacement History of wisdom tooth extraction Status post glaucoma surgery Family History Mother Diabetes Colorectal cancer Hypertension Brother Motor vehicle accident with no injury Brother Stroke Father Unknown family medical history Other No family history of adverse response to anesthesia Denies family history of Ovarian cancer Prostate cancer Coronary heart disease Myocardial infarction Breast cancer Social History Smoking Status: Never smoker Second Hand Exposure: No; Do You Dip or Chew Tobacco: No; Hx Alcohol Use: No Hx Substance Use: No Preferred Language: Japanese Communication Ability: Effective Visual Impairment: No Limitations Hearing Ability: Normal Central Office Technician Required: No Beliefs That Will Affect Care: None marital status: Current Living Situation: Spouse current occupational status: retired Feels Safe at Home: Yes Safety Concerns: Feels Safe At This Time Childhood Exposure to Second-Hand Smoke: No Diet: regular caffeine: No during the past year weight has: remained stable Dental Care, Regularly: Yes Physical Activity Frequency: Daily Physical Activity Frequency Comment: stationary bike x2 daily Seatbelt Use: always Sunscreen Use: Yes Assistive Devices: Cane Allergies Allergies Allergy/AdvReac Type Severity Reaction Status Date / Time atorvastatin AdvReac Unknown MUSCLE Verified 08/28/23 21:38 ACHES chlorthalidone AdvReac Unknown GI Verified 08/28/23 21:38 SYMPTOMS,VOMITING hydrochlorothiazide AdvReac Unknown GI Verified 08/28/23 21:38 SYMPTOMS,VOMITING simvastatin AdvReac Unknown HEADACHE Verified 08/28/23 21:38 Home Meds Home Medications Medication Instructions Recorded Confirmed aspirin 81 mg tablet,delayed 81 mg PO HS 02/15/19 08/28/23 release hydrocortisone 2 % lotion 1 applic topical BID PRN Rash 02/15/19 08/28/23 ketoconazole 2 % topical cream 1 appln topical BID PRN Rash 02/15/19 08/28/23 multivitamin 1 tab PO QAM 04/09/22 08/28/23 coenzyme Q10 10 mg capsule 10 mg PO DAILY 05/10/23 08/28/23 Previous Rx's Medication Instructions Recorded mometasone 0.1 % topical cream 1 applic topical BID PRN rash #45 01/31/20 grams blood-glucose meter (OneTouch #1 ea 04/01/22 Verio Reflect Start kit) irbesartan 300 mg tablet 300 mg PO QAM #90 tabs 04/01/22 rosuvastatin 10 mg tablet 10 mg PO DAILY #90 tabs 10/01/22 metformin 500 mg tablet 500 mg PO BID #180 tabs 11/19/22 allopurinol 300 mg tablet 300 mg PO QAM #90 tabs 02/15/23 docusate sodium 100 mg capsule 100 mg PO BID PRN constipation #30 04/26/23 (Colace) caps furosemide 40 mg tablet 40 mg PO QAM #90 tabs 02/12/24 metoprolol succinate 100 mg 100 mg PO HS #90 tabs 04/26/23 tablet,extended release 24 hr oxycodone-acetaminophen 5 mg-325 1 tab PO Q6H PRN pain #20 tabs 04/26/23 mg tablet (Percocet) potassium citrate 15 mEq (1,620 15 meq PO DAILY #90 tabs 05/26/23 mg) tablet,extended release levothyroxine 25 mcg tablet 25 mcg PO DAILY #30 tabs 06/15/23 Results & Data (ED) Vital Signs Vital Signs - 24 hr 08/28/23 21:26 08/28/23 22:14 08/28/23 22:14 Temperature 36.4 C L Temperature Source Temporal Artery Scan Pulse Rate 87 Pulse Rate [Finger] 79 Respiratory Rate 18 17 Respiratory Effort / Characteristics Non-Labored Spontaneous Respiratory Depth Normal Normal Respiratory Pattern Regular Blood Pressure 177/93 H Blood Pressure [Left Arm] 166/87 H Blood Pressure Mean 121 Blood Pressure Mean [Left Arm] 113 Blood Pressure Position Sitting Pulse Oximetry 94 95 95 Oxygen Delivery Method Room Air Room Air Room Air Sepsis Recent Fever Within 48 Hours No Sepsis New/Unexplained Change in Mental Status N/A Sepsis Action Taken by Nursing No Action Required Laboratory Data Attestation: I reviewed the patient's lab results. 08/29/23 02:48 08/29/23 03:50 Lab Results 08/28/23 08/28/23 08/28/23 Range/Units 21:50 22:56 23:56 WBC 5.82 (4.8-10.8) K/ul RBC 3.57 L (4.70-6.10) M/uL Hgb 12.3 L (14.0-18.0) g/dl Hct 34.8 L (42.0-52.0) % MCV 97.5 (80.0-100.0) fL MCH 34.5 H (25.0-34.0) pg MCHC 35.3 (32.0-36.0) g/dL RDW Std Deviation 47.8 H (36.4-46.3) fL RDW Coeff of Marcus 13.4 (11.5-14.5) % Plt Count 190 (130-400) K/uL MPV 10.8 (9.4-12.4) fL Immature Gran % (Auto) 0.2 % Neut % (Auto) 69.4 % Lymph % (Auto) 17.2 % Hart % (Auto) 8.2 % Eos % (Auto) 4.1 % Baso % (Auto) 0.9 % Neut # (Auto) 4.04 (1.40-6.50) K/uL Lymph # (Auto) 1.00 L (1.20-3.40) K/uL Hart # (Auto) 0.48 (0.11-0.59) K/uL Eos # (Auto) 0.24 (0.00-0.50) K/uL Baso # (Auto) 0.05 (0.00-0.20) K/uL Immature Gran # (Auto) 0.01 (0.01-0.20) K/uL VBG pH 7.37 (7.36-7.41) VBG pCO2 43 (38-50) mmHg VBG pO2 44 mmHg VBG HCO3 25 mmol/L VBG O2 Saturation 77.2 % VBG Base Excess -0.6 mEq/L Sodium 124 L (136-145) mmol/L Potassium 5.1 (3.5-5.1) mmol/L Chloride 87 L (98-107) mmol/L Carbon Dioxide 24 (21-32) mmol/L Anion Gap 13 H (3-11) BUN 50 H (6-23) mg/dl Creatinine 2.45 H (0.6-1.4) mg/dl Est Cr Clr Drug Dosing 28.7 ml/min Est GFR ( Amer) 29.0 ml/min Est GFR (Non-Af Amer) 25.0 ml/min BUN/Creatinine Ratio 20.4 H (10-20) Glucose 1039 H* (70-99(Fasting)) mg/dl POC Glucose (70-99) mg/dl Osmolality 339 H (280-300) mOsm/kg Lactate 4.4 H* 2.9 H* (0.4-2.0) mmol/L Calcium 9.2 (8.6-10.3) mg/dl Total Bilirubin 0.4 (0.2-1.0) mg/dl AST 40 H (13-39) U/L ALT 35 (7-52) U/L Alkaline Phosphatase 90 (34-104) U/L Total Protein 7.6 (6.0-8.3) gm/dl Albumin 4.0 (3.4-5.0) gm/dl Globulin 3.6 (2.5-4.0) gm/dl Albumin/Globulin Ratio 1.1 (0.9-2) Lipase 88 H (11-82) U/L Procalcitonin 0.37 (0-0.5) ng/ml Urine Color Urine Appearance (Clear) Urine pH (4.5-7.5) Ur Specific Foley (1.000-1.030) Urine Protein (Negative) Urine Glucose (UA) (Negative) Urine Ketones (Negative) Urine Blood (Negative) Urine Nitrite (Negative) Urine Bilirubin (Negative) Urine Urobilinogen (Negative) Ur Leukocyte Esterase (Negative) Urine WBC (Auto) (0-5) /hpf Urine RBC (Auto) (0-2) /hpf U Hyaline Cast (Auto) (0-2) /lpf U Epithel Cells (Auto) (0-2) /hpf Urine Bacteria (Auto) (None Seen) 08/28/23 08/29/23 08/29/23 Range/Units Unknown 01:29 01:33 WBC (4.8-10.8) K/ul RBC (4.70-6.10) M/uL Hgb (14.0-18.0) g/dl Hct (42.0-52.0) % MCV (80.0-100.0) fL MCH (25.0-34.0) pg MCHC (32.0-36.0) g/dL RDW Std Deviation (36.4-46.3) fL RDW Coeff of Marcus (11.5-14.5) % Plt Count (130-400) K/uL MPV (9.4-12.4) fL Immature Gran % (Auto) % Neut % (Auto) % Lymph % (Auto) % Hart % (Auto) % Eos % (Auto) % Baso % (Auto) % Neut # (Auto) (1.40-6.50) K/uL Lymph # (Auto) (1.20-3.40) K/uL Hart # (Auto) (0.11-0.59) K/uL Eos # (Auto) (0.00-0.50) K/uL Baso # (Auto) (0.00-0.20) K/uL Immature Gran # (Auto) (0.01-0.20) K/uL VBG pH (7.36-7.41) VBG pCO2 (38-50) mmHg VBG pO2 mmHg VBG HCO3 mmol/L VBG O2 Saturation % VBG Base Excess mEq/L Sodium (136-145) mmol/L Potassium (3.5-5.1) mmol/L Chloride (98-107) mmol/L Carbon Dioxide (21-32) mmol/L Anion Gap (3-11) BUN (6-23) mg/dl Creatinine (0.6-1.4) mg/dl Est Cr Clr Drug Dosing ml/min Est GFR ( Amer) ml/min Est GFR (Non-Af Amer) ml/min BUN/Creatinine Ratio (10-20) Glucose 634 H* (70-99(Fasting)) mg/dl POC Glucose > 600 H* (70-99) mg/dl Osmolality (280-300) mOsm/kg Lactate (0.4-2.0) mmol/L Calcium (8.6-10.3) mg/dl Total Bilirubin (0.2-1.0) mg/dl AST (13-39) U/L ALT (7-52) U/L Alkaline Phosphatase (34-104) U/L Total Protein (6.0-8.3) gm/dl Albumin (3.4-5.0) gm/dl Globulin (2.5-4.0) gm/dl Albumin/Globulin Ratio (0.9-2) Lipase (11-82) U/L Procalcitonin (0-0.5) ng/ml Urine Color Yellow Urine Appearance Clear (Clear) Urine pH 7.0 (4.5-7.5) Ur Specific Foley 1.030 (1.000-1.030) Urine Protein Negative (Negative) Urine Glucose (UA) 3+ H (Negative) Urine Ketones Negative (Negative) Urine Blood Trace H (Negative) Urine Nitrite Negative (Negative) Urine Bilirubin Negative (Negative) Urine Urobilinogen Negative (Negative) Ur Leukocyte Esterase Negative (Negative) Urine WBC (Auto) 0-5 (0-5) /hpf Urine RBC (Auto) 0-2 (0-2) /hpf U Hyaline Cast (Auto) 0-2 (0-2) /lpf U Epithel Cells (Auto) 0-2 (0-2) /hpf Urine Bacteria (Auto) None Seen (None Seen) Administered Medications Insulin Human Regular 250 (units/ Sodium Chloride) 250 mls @ 4.6 mls/hr IV .Q24H REBEKAH; Protocol Stop: 09/27/23 23:44 Last Titration: 08/29/23 03:57 Dose: 4.6 units/hr, 4.6 mls/hr Documented By: JORGE Co-signed By: Titration: 08/29/23 03:25 Dose: 0 units/hr, 0 mls/hr Documented By: JORGE Co-signed By: Titration: 08/29/23 02:26 Dose: 7.7 units/hr, 7.7 mls/hr Documented By: JORGE Co-signed By: EDIN Admin: 08/29/23 00:25 Dose: 9.6 units/hr, 9.6 mls/hr Documented By: JORGE Co-signed By: Potassium Chloride/Sodium Chloride (1/2 Nss + 20meq Kcl 1000ml) 20 meq in 1,000 mls @ 250 mls/hr IV .Q4H REBEKAH Stop: 09/27/23 23:44 Last Admin: 08/29/23 00:26 Dose: 250 mls/hr Documented By: JORGE Discontinued Medications Sodium Chloride (Nss) 1,000 mls @ 999 mls/hr IV .Q1H1M ONE Stop: 08/28/23 22:41 Last Infusion: 08/28/23 23:19 Dose: Infused Documented By: Admin: 08/28/23 22:11 Dose: 999 mls/hr Documented By: JIL Insulin Human Regular (Novolin-R Bolus From Bag) 9.6 units IV ONE ONE Stop: 08/28/23 23:46 Last Admin: 08/29/23 00:26 Dose: 9.6 units Documented By: JORGE Co-signed By: Imaging Data Radiologist's Impression: Abdomen/Pelvis CT 08/28/23 22:57 Exam(s): CT ABDOMEN + PELVIS Without Contrast EXAM: CT Abdomen and Pelvis Without Intravenous Contrast CLINICAL HISTORY: Sepsis. TECHNIQUE: Axial computed tomography images of the abdomen and pelvis without intravenous contrast. CTDI is 28.14 mGy and DLP is 1401.32 mGy-cm. Automated exposure control was utilized for the study. A dose lowering technique was utilized adhering to the principles of ALARA. COMPARISON: No relevant prior studies available. FINDINGS: Lung bases: Unremarkable. No mass. No consolidation. ABDOMEN: Liver: Unremarkable. Gallbladder and bile ducts: Cholelithiasis. No ductal dilation. Pancreas: Unremarkable. No ductal dilation. Spleen: Unremarkable. No splenomegaly. Adrenals: Unremarkable. No mass. Kidneys and ureters: Left nephrectomy. Nonobstructing renal calculi measure up to 4 mm. No hydronephrosis. Stomach and bowel: Unremarkable. No obstruction. No mucosal thickening. PELVIS: Appendix: Normal appendix. Bladder: Unremarkable. No stones. Reproductive: Unremarkable as visualized. ABDOMEN and PELVIS: Intraperitoneal space: Unremarkable. No free air. No significant fluid collection. Bones/joints: Bilateral hip prosthesis. No acute fracture. No dislocation. Soft tissues: Moderate disclosed benign inguinal hernia containing fat. Vasculature: Unremarkable. No abdominal aortic aneurysm. Lymph nodes: Unremarkable. No enlarged lymph nodes. IMPRESSION: 1. Cholelithiasis. 2. Nonobstructing renal calculi measure up to 4 mm. No hydronephrosis. Electronically signed by: Stephanie Dennis MD 08/29/23 00:[address] 08/28/23 22:58 Exam(s): CT CHEST Without Contrast EXAM: CT Chest Without Intravenous Contrast CLINICAL HISTORY: Sepsis, rigors. TECHNIQUE: Axial computed tomography images of the chest without intravenous contrast. CTDI is 27.7 mGy and DLP is 922.1 mGy-cm. Automated exposure control was utilized for the study. A dose lowering technique was utilized adhering to the principles of ALARA. COMPARISON: CT chest 05/03/23 FINDINGS: Lungs: Unremarkable. No mass. No consolidation. Pleural space: Unremarkable. No pneumothorax. No significant effusion. Heart: Coronary artery calcifications are present. No cardiomegaly. No significant pericardial effusion. Bones/joints: Mild upper sclerosis. There are degenerative changes of the spine. No acute fracture. No dislocation. Soft tissues: Unremarkable. Vasculature: Mild atherosclerosis. No aneurysm.. Lymph nodes: Unremarkable. No enlarged lymph nodes. IMPRESSION: No acute findings in the chest. Electronically signed by: Stephanie Dennis MD 08/29/23 00:50 AM Discharge Plan Visit Data Chief Complaint: Urinary Symptoms Stated Complaint: FREQUENT URINATION, SHAKING ED Provider: Cross,Corby E Discharge Problem: Hyperosmolar hyperglycemic state (HHS), Acute on chronic renal insufficiency, Increased urinary frequency Patient Disposition: Admitted As Inpatient Discharge Instructions Interventions: ED Discharge Assessment Last Done: 08/29/23 03:27
[2023-08-28 22:46] LABS: Albumin Globulin Ratio 1.1 (0.9-2); BUN Creatinine Ratio 20.4 (10-20); Bilirubin,Total 0.4 mg/dl (0.2-1.0); Calcium 9.2 mg/dl (8.6-10.3); Creatinine Clr Calc Pharmacy 28.7 ml/min; Globulin 3.6 gm/dl (2.5-4.0); Potassium 5.1 mmol/L (3.5-5.1); Total Protein 7.6 gm/dl (6.0-8.3)
[2023-08-28 23:09] LABS: Base Excess VBG -0.6 mEq/L; HCO3 VBG 25 mmol/L; Oxygen Saturation VBG 77.2 %; PCO2 VBG 43 mmHg (38-50); PO2 VBG 44 mmHg; pH VBG 7.37 (7.36-7.41)
[2023-08-28] MEDS ORDERED: STAT IV Infusion **Titration per Protocol STA (23:37)
[2023-08-28] MEDS ORDERED: HHS GOAL RANGE 250-350 mg/dl ONE (23:37)
[2023-08-28] MEDS ORDERED: CARBOHYDRATES FOR HYPOGLYCEMIA PO PRN (23:45)
[2023-08-28] MEDS ORDERED: GLUCAGON FOR INJ 1 MG VIAL IM PRN (23:45)
[2023-08-28] MEDS ORDERED: GLUCOSE 40% GEL 15 GM TUBE PO PRN (23:45)
[2023-08-28] MEDS ORDERED: GLUCOSE 10 TAB/TUBE PO PRN (23:45)
[2023-08-28] MEDS ORDERED: DEXTROSE 50% 50 ML SYRINGE IV PRN (23:45)
[2023-08-29] MEDS: INSULIN REGULAR 250 UNITS in SODIUM CHLORIDE 0.9% 247.5 ML IV SCH (00:25)
--- NOTE | 2023-08-29 00:25 | History & Physical Report ---
Date of Service August 29, 2023 Assessment & Plan (1) Hyperosmolar hyperglycemic state (HHS): Plan: -Patient with a glucose of 1039 in the ED. Vital signs are stable. -Sodium of 124, creatinine of 2.45, lactate of 4.4, VBG of 7.37. -UA positive for 3+ glucose and trace blood. -CT abdomen pelvis showed nonobstructing renal calculi measuring up to 4 mm. -Chest CT negative. -Patient has been mostly stable with his diabetes on metformin 500 mg twice daily though the most likely trigger for his HHS at this time is due to doing 10-12 servings of flavored ice every day for the past month. -HHS protocol with sodium chloride 0.45% +20 mEq KCl and insulin started in the ED, continued at time of admission. -HHS goal of [id number]. -BMP, phosphorus, VBG, and magnesium every 4 hours. -POC glucose every hour until at goal. -N.p.o. at this time. Will monitor on telemetry. -Blood cultures pending. Will hold off on any antibiotics at this time given low suspicion for infection. -Pharmacy glycemic management consulted. (2) Type 2 diabetes mellitus: Plan: -Hemoglobin A1c ordered. -Has been pretty well-controlled with metformin 500 mg twice daily. -Most likely HHS is secondary to a rice ingestion as stated above. (3) CKD (chronic kidney disease): Plan: -History of CKD which has been relatively stable around 1.5. -2.45 at time of admission, improving with HHS protocol. -Holding home losartan due to elevation creatinine. -Continue to monitor with BMPs. (4) Renal cell cancer: Plan: -Noted, as above. Will monitor creatinine with BMPs. (5) Hypertension: Plan: -Holding home losartan due to elevation of creatinine. (6) Hyperlipidemia: Plan: -Continue home medications. Plan Fluids: One half NSS +20 mEq KCl Nutrition: N.p.o. Code status: Full code DVT ppx: SCDs Dispo: Telemetry History of Present Illness Chief Complaint: HHS Primary Care Provider: Ace Corea MD Patient is a 73-year-old male with past medical history of type 2 diabetes, BPH, hyperlipidemia, hypertension, and CKD who presents to the hospital with HHS. Patient started to have frequency in urination starting yesterday as well as rigors this morning. States that the tremor started this morning when he woke up. He also had tingling all over his body as well as increase in thirst. He currently takes 500 mg metformin twice daily. Reports no missing of doses. Does report about a 15 pound weight loss over the last 2 years. Denies any recent illnesses. Denies any cough, chest pain, nausea, vomiting, abdominal pain, diarrhea, or other urinary symptoms. Does state that he has been ingesting flavored ice over the past month. Will have about 10-12 servings of flavored ice a day during this time. Allergies Allergy/AdvReac Type Severity Reaction Status Date / Time atorvastatin AdvReac Unknown MUSCLE Verified 08/28/23 21:38 ACHES chlorthalidone AdvReac Unknown GI Verified 08/28/23 21:38 SYMPTOMS,VOMITING hydrochlorothiazide AdvReac Unknown GI Verified 08/28/23 21:38 SYMPTOMS,VOMITING simvastatin AdvReac Unknown HEADACHE Verified 08/28/23 21:38 Home Medications Medication Instructions Recorded Confirmed Type aspirin 81 mg tablet,delayed 81 mg PO HS 02/15/19 08/28/23 History release hydrocortisone 2 % lotion 1 applic topical BID PRN Rash 02/15/19 08/28/23 History ketoconazole 2 % topical cream 1 appln topical BID PRN Rash 02/15/19 08/28/23 History mometasone 0.1 % topical cream 1 applic topical BID PRN rash #45 01/31/20 08/28/23 Rx grams blood-glucose meter (OneTouch #1 ea 04/01/22 08/28/23 Rx Verio Reflect Start kit) irbesartan 300 mg tablet 300 mg PO QAM #90 tabs 04/01/22 08/28/23 Rx multivitamin 1 tab PO QAM 04/09/22 08/28/23 History rosuvastatin 10 mg tablet 10 mg PO DAILY #90 tabs 10/01/22 08/28/23 Rx metformin 500 mg tablet 500 mg PO BID #180 tabs 11/19/22 08/28/23 Rx allopurinol 300 mg tablet 300 mg PO QAM #90 tabs 02/15/23 08/28/23 Rx docusate sodium 100 mg capsule 100 mg PO BID PRN constipation #30 04/26/23 08/28/23 Rx (Colace) caps furosemide 40 mg tablet 40 mg PO QAM #90 tabs 04/26/23 08/28/23 Rx metoprolol succinate 100 mg 100 mg PO HS #90 tabs 04/26/23 08/28/23 Rx tablet,extended release 24 hr oxycodone-acetaminophen 5 mg-325 1 tab PO Q6H PRN pain #20 tabs 04/26/23 08/28/23 Rx mg tablet (Percocet) coenzyme Q10 10 mg capsule 10 mg PO DAILY 05/10/23 08/28/23 History potassium citrate 15 mEq (1,620 15 meq PO DAILY #90 tabs 05/26/23 08/28/23 Rx mg) tablet,extended release levothyroxine 25 mcg tablet 25 mcg PO DAILY #30 tabs 06/15/23 08/28/23 Rx Past Med/Surg History Problem List (Updated 08/29/23 @ 05:50 by Corby Bishop MD) Increased urinary frequency (Acute) Acute on chronic renal insufficiency (Acute) Type 2 diabetes mellitus Hyperosmolar hyperglycemic state (HHS) (Acute) Abnormal CT scan of lung Mediastinal adenopathy ASCVD (arteriosclerotic cardiovascular disease) Renal cell cancer Tubular adenoma of colon (Acute) Rosacea (Acute) Psoriasis (Acute) Osteoarthritis of hip (Acute) Nephrolithiasis (Acute) Hypertension (Acute) Hyperlipidemia (Acute) Gout, joint (Acute) Elevated ferritin (Acute) Carotid stenosis (Acute) bruit right carotid artery Benign prostate hyperplasia (Acute) Nonalcoholic fatty liver disease (Chronic) Melanoma of back Malignant melanoma of left ear Melanoma of right upper arm Iron overload Thoracic lymphadenopathy Diabetes type 2, controlled Medical History Branch retinal vein occlusion of left eye Carotid stenosis Degenerative disc disease Diabetes type 2, controlled Family history of colon cancer in mother Glaucoma History of colon polyps History of gout History of melanoma HTN (hypertension) Hyperlipidemia Kidney stones Mass of kidney Surgical History H/O lumbosacral spine surgery History of colonoscopy with polypectomy History of lithotripsy History of Mohs micrographic surgery for skin cancer History of tonsillectomy and adenoidectomy History of total left hip replacement History of total right hip replacement History of wisdom tooth extraction Status post glaucoma surgery Family History Mother Diabetes Colorectal cancer Hypertension Brother Motor vehicle accident with no injury Brother Stroke Father Unknown family medical history Other No family history of adverse response to anesthesia Denies family history of Ovarian cancer Prostate cancer Coronary heart disease Myocardial infarction Breast cancer Social History Smoking Status: Never smoker Second Hand Exposure: No; Do You Dip or Chew Tobacco: No; Hx Alcohol Use: No Hx Substance Use: No Preferred Language: Trinidadian Communication Ability: Effective Visual Impairment: No Limitations Hearing Ability: Normal Maid Housekeeper Required: No Beliefs That Will Affect Care: None marital status: Current Living Situation: Spouse current occupational status: retired Feels Safe at Home: Yes Safety Concerns: Feels Safe At This Time Childhood Exposure to Second-Hand Smoke: No Diet: regular caffeine: No during the past year weight has: remained stable Dental Care, Regularly: Yes Physical Activity Frequency: Daily Physical Activity Frequency Comment: stationary bike x2 daily Seatbelt Use: always Sunscreen Use: Yes Assistive Devices: Cane Review of Systems Review of Systems: All systems reviewed & are unremarkable except as noted in Subjective Physical Exam 2 Physical Exam: Constitutional: well-appearing, no acute distress HEENT: NCAT, no conjunctival injection CV: regular rhythm, no murmur appreciated, extremities well-perfused, no LE edema Resp: CTABL, no wheezes/rales/rhonchi appreciated, no increased work of breathing GI: soft, nondistended, nontender, BS normoactive MSK: no gross deformities appreciated Skin: warm, dry, no rash appreciated Neuro: alert, oriented, no focal neurologic deficit appreciated Results & Data Results & Data Vital Signs (Past 12 Hours) Vital Signs Temp Pulse Pulse Resp BP BP Pulse Ox 08/28/23 22:14 95 08/28/23 22:14 79 17 166/87 H 95 08/28/23 21:26 36.4 C L 87 18 177/93 H 94 O2 Del Method 08/28/23 22:14 Room Air 08/28/23 22:14 Room Air 08/28/23 21:26 Room Air Supervising Physician Co-Signing Physician Notes Attending addendum: I have physically seen this patient, have supervised the medical residents activities, and agree with the H&P unless as otherwise noted. Assessment and Plan: Hyperosmolar hyperglycemic state/HHS- Glucose 1039 on admission Continue insulin drip begun in the ED Continue half-normal saline with 20 mEq at 2050 mL/h Every 4 hour renal function panel, magnesium, phosphorus and VBG Follow urine cultures and blood cultures [place] glycemic management has been consulted Acute kidney injury superimposed on CKD/renal cell cancer- Creatinine 2.45 on admission, with base around 1.5 Follow as noted above serially IV fluids as indicated Hypertension- Hold losartan due to AKIN (4) Renal cell cancer Laterality: left Qualified Code(s): C64.2 - Malignant neoplasm of left kidney, except renal pelvis (5) Hypertension Hypertension type: primary hypertension Qualified Code(s): I10 - Essential (primary) hypertension
[2023-08-29] MEDS: SODIUM CHLOR 0.45% + 20MEQ KCL 20 MEQ/1,000 ML BAG IV SCH (00:26)
[2023-08-29] MEDS: NovoLIN-R BOLUS FROM BAG IV ONE (00:26)
--- NOTE | 2023-08-29 00:51 | CT Scan Report ---
Exam(s): CT CHEST Without Contrast EXAM: CT Chest Without Intravenous Contrast CLINICAL HISTORY: Sepsis, rigors. TECHNIQUE: Axial computed tomography images of the chest without intravenous contrast. CTDI is 27.7 mGy and DLP is 922.1 mGy-cm. Automated exposure control was utilized for the study. A dose lowering technique was utilized adhering to the principles of ALARA. COMPARISON: CT chest 05/03/23 FINDINGS: Lungs: Unremarkable. No mass. No consolidation. Pleural space: Unremarkable. No pneumothorax. No significant effusion. Heart: Coronary artery calcifications are present. No cardiomegaly. No significant pericardial effusion. Bones/joints: Mild upper sclerosis. There are degenerative changes of the spine. No acute fracture. No dislocation. Soft tissues: Unremarkable. Vasculature: Mild atherosclerosis. No aneurysm.. Lymph nodes: Unremarkable. No enlarged lymph nodes. IMPRESSION: No acute findings in the chest. Electronically signed by: Stephanie Dennis MD 08/29/23 00:50 AM
--- NOTE | 2023-08-29 00:53 | CT Scan Report ---
Exam(s): CT ABDOMEN + PELVIS Without Contrast EXAM: CT Abdomen and Pelvis Without Intravenous Contrast CLINICAL HISTORY: Sepsis. TECHNIQUE: Axial computed tomography images of the abdomen and pelvis without intravenous contrast. CTDI is 28.14 mGy and DLP is 1401.32 mGy-cm. Automated exposure control was utilized for the study. A dose lowering technique was utilized adhering to the principles of ALARA. COMPARISON: No relevant prior studies available. FINDINGS: Lung bases: Unremarkable. No mass. No consolidation. ABDOMEN: Liver: Unremarkable. Gallbladder and bile ducts: Cholelithiasis. No ductal dilation. Pancreas: Unremarkable. No ductal dilation. Spleen: Unremarkable. No splenomegaly. Adrenals: Unremarkable. No mass. Kidneys and ureters: Left nephrectomy. Nonobstructing renal calculi measure up to 4 mm. No hydronephrosis. Stomach and bowel: Unremarkable. No obstruction. No mucosal thickening. PELVIS: Appendix: Normal appendix. Bladder: Unremarkable. No stones. Reproductive: Unremarkable as visualized. ABDOMEN and PELVIS: Intraperitoneal space: Unremarkable. No free air. No significant fluid collection. Bones/joints: Bilateral hip prosthesis. No acute fracture. No dislocation. Soft tissues: Moderate disclosed benign inguinal hernia containing fat. Vasculature: Unremarkable. No abdominal aortic aneurysm. Lymph nodes: Unremarkable. No enlarged lymph nodes. IMPRESSION: 1. Cholelithiasis. 2. Nonobstructing renal calculi measure up to 4 mm. No hydronephrosis. Electronically signed by: Stephanie Dennis MD 08/29/23 00:52 AM
[2023-08-29] MEDS ORDERED: HHS GOAL RANGE 250-350 mg/dl ONE (03:26)
[2023-08-29] MEDS ORDERED: PHARMACY GLYCEMIC MGMT CONSULT PRN (03:26)
[2023-08-29 04:17] LABS: Basophils # (auto) 0.06 K/uL (0.00-0.20); Basophils % (auto) 0.8 %; Eosinophils # (auto) 0.32 K/uL (0.00-0.50); Eosinophils % (auto) 4.2 %; Hematocrit (blood only) 33.3 % (42.0-52.0); Immature Granulocytes # (auto) 0.02 K/uL (0.01-0.20); Immature Granulocytes % (auto) 0.3 %; Lymphocytes # (auto) 1.85 K/uL (1.20-3.40); Lymphocytes % (auto) 24.3 %; Mean Corpuscular Hemoglobin 34.5 pg (25.0-34.0); Mean Corpuscular Volume 95.7 fL (80.0-100.0); Mean Platelet Volume 10.8 fL (9.4-12.4); Monocytes # (auto) 0.89 K/uL (0.11-0.59); Monocytes % (auto) 11.7 %; Neutrophils # (auto) 4.47 K/uL (1.40-6.50); Neutrophils % (auto) 58.7 %; Platelet Count 178 K/uL (130-400); RDW Coefficient of Variation 13.2 % (11.5-14.5); RDW Standard Deviation 46.2 fL (36.4-46.3); Red Blood Count 3.48 M/uL (4.70-6.10); White Blood Count 7.61 K/ul (4.8-10.8)
[2023-08-29 04:33] LABS: Albumin Globulin Ratio 1.1 (0.9-2); Albumin Level 3.7 gm/dl (3.4-5.0); BUN Creatinine Ratio 22.4 (10-20); Bilirubin,Total 0.4 mg/dl (0.2-1.0); Creatinine Clr Calc Pharmacy 35.9 ml/min; Est GFR (African American) 37.9 ml/min; Est GFR (Non-African American) 32.7 ml/min; Globulin 3.4 gm/dl (2.5-4.0); Magnesium 2.5 mg/dl (1.7-2.4); Potassium 4.4 mmol/L (3.5-5.1); Total Protein 7.1 gm/dl (6.0-8.3)
[2023-08-29 04:37] LABS: BUN Creatinine Ratio 23.8 (10-20); Creatinine Clr Calc Pharmacy 36.5 ml/min; Est GFR (African American) 38.6 ml/min; Est GFR (Non-African American) 33.3 ml/min; Magnesium 2.5 mg/dl (1.7-2.4); Phosphorus 4.2 mg/dl (2.5-4.9); Potassium 4.4 mmol/L (3.5-5.1)
[2023-08-29] MEDS ORDERED: Nursing to Pharmacy Communication SCH (05:45)
[2023-08-29] MEDS: PENDING D5 1/2NS+20mEq KCL IVF SCH (05:47)
[2023-08-29] MEDS: D5W AND 1/2NSS + 20MEQ KCL 20 MEQ/1,000 ML BAG IV SCH (05:53)
[2023-08-29] MEDS: LEVOTHYROXINE SODIUM 25 MCG TABLET PO SCH (06:45)
[2023-08-29 08:01] LABS: Estimated Average Glucose 303 mg/dl; Hemoglobin A1C 12.2 % (4.5-5.6)
--- NOTE | 2023-08-29 08:10 | Hospitalist Progress Note ---
Date of Service August 29, 2023 Assessment & Plan (1) Hyperosmolar hyperglycemic state (HHS): (2) Type 2 diabetes mellitus: (3) Renal cell cancer: (4) Hypertension: (5) Hyperlipidemia: Plan 1) Hyperosmolar hyperglycemic state -Patient with a glucose of 1039 in the ED. Vital signs are stable. -Sodium of 124, creatinine of 2.45, lactate of 4.4, VBG of 7.37. -UA positive for 3+ glucose and trace blood. -CT abdomen pelvis showed nonobstructing renal calculi measuring up to 4 mm; Chest CT negative. -Patient has been mostly stable with his diabetes on metformin 500 mg twice daily though the most likely trigger for his HHS at this time is due to doing 10-12 servings of flavored ice every day for the past month. -HHS protocol with sodium chloride 0.45% +20 mEq KCl and insulin started in the ED, continued at time of admission. -HHS goal of [id number]. -BMP, phosphorus, VBG, and magnesium every 4 hours; POC glucose every hour until at goal. -Blood cultures pending. Will hold off on any antibiotics at this time given low suspicion for infection. -Pharmacy glycemic management consulted. Fluids: One half NSS +20 mEq KCl initially, discontinued now 2) T2DM -Hemoglobin A1C, 12.2 -Prior to episode, well-controlled with metformin 500 mg, BID --> may need to modify drug regimen going forward -Most likely HHS is secondary to a flavored ice ingestion as stated above. - Diabetes education consult placed 3) AKIN/Hx of renal cell cancer -Noted, as above, follows w/ [facility] - Cr, 1.58 <-- 2.45 (baseline Cr, 1.45 - 1.60) - Will monitor creatinine with BMPs. 4) Hyperlipidemia - rosuvastatin, 10 mg, PO, daily 5) Hypertension -Holding home irbesartan due to elevation of creatinine. - Can restart on losartan when patient's creatinine improves 6) Subclinical hypothyroidism - levothyroxine, 25 ug, daily, QAM Nutrition: NPO Code status: Full code DVT ppx: SCDs Dispo: PCU-Telemetry, Observation Admission and Anticipated Discharge Date Admission Date: August 29, 2023 Supervising Physician Co-Signing Physician Notes I personally examined the patient and verified montes points of history and exam, discussed case, and agree with decision making and plan documented by Dr. Jolley. Patient on admission for [facility], blood glucose initially over 1000. On exam, patient was feeling much better, blood glucose levels are normalizing on insulin infusion, will be transitioned over to basal/bolus insulin, 20 U glargine given and sliding scale initiated, patient is new to insulin and will require education. Patient appears comfortable, lungs clear b/l to auscultation, regular rate and rhythm, no acute distress. Reviewed A1c of 12.2%. Will continue to monitor glucose and electrolytes. Subjective Patient is a 73-year-old male with past medical history of type 2 diabetes, BPH, hyperlipidemia, hypertension, and CKD who presents to the hospital with HHS. Patient started to have frequency in urination starting yesterday as well as rigors this morning. States that the tremor started this morning when he woke up. He also had tingling all over his body as well as increase in thirst. He currently takes 500 mg metformin twice daily. Reports no missing of doses. Does report about a 15 pound weight loss over the last 2 years. Denies any recent illnesses. Denies any cough, chest pain, nausea, vomiting, abdominal pain, diarrhea, or other urinary symptoms. Does state that he has been ingesting flavored ice over the past month. Will have about 10-12 servings of flavored ice a day during this time. Review of Systems Constitutional: + fatigue; no fever and no chills Respiratory: no cough, no chest congestion and no dyspnea Cardiovascular: no chest pain and no palpitations Gastrointestinal: no abdominal pain, no nausea and no vomiting Genitourinary: no dysuria or no urinary frequency Neurologic: no tingling and no numbness Psychiatric: no difficulty concentrating and no confusion Physical Exam Constitutional: WD/WN, vitals as above Respiratory: normal respiratory effort, lungs clear to auscultation Cardiovascular: RRR, no murmur, no edema Extremities: normal capillary refill and + calf tenderness (cramping tenderness overnight); no pedal edema Gastrointestinal (Abdomen): normal bowel sounds, soft, nontender, no hepatosplenomegaly Psychiatric: A+Ox3, euthymic affect Results & Data Results & Data Vital Signs (Past 12 Hours) Vital Signs Temp Pulse Pulse Resp BP BP Pulse Ox 08/29/23 07:10 70 08/29/23 05:00 72 16 119/68 96 08/29/23 04:35 36.9 C 72 17 152/81 H 96 08/29/23 04:17 72 08/29/23 03:26 96 08/29/23 03:26 70 19 127/80 96 08/29/23 03:00 77 17 127/80 96 08/29/23 01:59 86 18 141/100 H 95 08/28/23 22:14 95 08/28/23 22:14 79 17 166/87 H 95 08/28/23 21:26 36.4 C L 87 18 177/93 H 94 O2 Del Method 08/29/23 07:10 08/29/23 05:00 Room Air 08/29/23 04:35 08/29/23 04:17 08/29/23 03:26 Room Air 08/29/23 03:26 Room Air 08/29/23 03:00 Room Air 08/29/23 01:59 Room Air 08/28/23 22:14 Room Air 08/28/23 22:14 Room Air 08/28/23 21:26 Room Air Resident Activity Tracking Resident Involvement: Resident Care Provided Care Provided: Adult Hospital Medicine (3) Renal cell cancer Laterality: left Qualified Code(s): C64.2 - Malignant neoplasm of left kidney, except renal pelvis (4) Hypertension Hypertension type: primary hypertension Qualified Code(s): I10 - Essential (primary) hypertension
[2023-08-29] MEDS: DC IV INSULIN INFUSION 1 EA DEVI ONE (08:38)
[2023-08-29] MEDS: LANTUS PER UNIT CHARGE SQ ONE (08:48)
[2023-08-29] MEDS: ROSUVASTATIN CALCIUM 10 MG TAB PO SCH (08:48)
[2023-08-29] MEDS ORDERED: LOSARTAN POTASSIUM 50 MG TAB PO SCH (09:00)
[2023-08-29 09:20] LABS: Calcium 8.8 mg/dl (8.6-10.3); Magnesium 2.5 mg/dl (1.7-2.4); Potassium 4.1 mmol/L (3.5-5.1)
[2023-08-29 09:25] LABS: BUN Creatinine Ratio 23.6 (10-20); Creatinine Clr Calc Pharmacy 42.7 ml/min; Est GFR (African American) 46.7 ml/min; Est GFR (Non-African American) 40.3 ml/min; Phosphorus 3.6 mg/dl (2.5-4.9)
[2023-08-29] MEDS: INSULIN ASPART PER UNIT CHARGE SC SCH ×2 (09:27→15:15)
[2023-08-29 12:14] LABS: BUN Creatinine Ratio 21.5 (10-20); Calcium 8.5 mg/dl (8.6-10.3); Creatinine Clr Calc Pharmacy 44.6 ml/min; Est GFR (African American) 49.2 ml/min; Est GFR (Non-African American) 42.5 ml/min; Magnesium 2.3 mg/dl (1.7-2.4); Phosphorus 3.4 mg/dl (2.5-4.9); Potassium 4.8 mmol/L (3.5-5.1)
--- NOTE | 2023-08-29 15:35 | Pharmacy Report ---
Pharmacy Glycemic Short Note 2 - Date of Service August 29, 2023 - Glycemic Short BSG Results (Last 24 hours): 08/28/23 08/29/23 08/29/23 21:50 01:29 01:33 Glucose 1039 H* 634 H* POC Glucose > 600 H* 08/29/23 08/29/23 08/29/23 03:23 03:50 03:50 Glucose 409 H* 409 H* POC Glucose 411 H* 08/29/23 08/29/23 08/29/23 04:26 05:29 06:32 Glucose POC Glucose 387 H* 333 H* 300 H 08/29/23 08/29/23 08/29/23 07:11 07:34 08:43 Glucose 296 H POC Glucose 289 H 263 H 08/29/23 08/29/23 08/29/23 11:36 11:43 14:39 Glucose 274 H POC Glucose 243 H 275 H OUTPATIENT ANTIDIABETIC REGIMEN: * metformin 500mg PO BID * HbA1c 12.2% (08/28/23) ASSESSMENT: * Norman is a 73 YOM admitted with weakness/shakiness/increased urination with a history of T2DM found to be in HHS. Subsequently he was started on fluids and an insulin infusion. Pharmacy has been consulted to assist with glycemic management. * Labs this AM normalized, and subsequently he was transitioned off of the insulin drip to SQ insulin. * Lantus given this AM, BSGs still slightly elevated at this time, not enough insulin drip overlap (recommended 2-6 hours), added basal scale to allow for Lantus to be held or up to a weight based stress of 3 * Novolog initiated at a weight based stress of 2 PLAN FOR INPATIENT GLYCEMIC CONTROL: * Hold outpatient oral diabetes medications * Basal insulin * Lantus 0-25 units SQ BID (see eMAR for additional details) * Bolus insulin * NovoLog per scale ACHS or Q6hrs while NPO * Goal Range: Low 110 mg/dL - High 140 mg/dL * Correction Factor: 25 mg/dL/unit * Nutritional / Prandial insulin per carb ratio of 1 unit per 8 grams CHO consumed
[2023-08-29 16:21] LABS: BUN Creatinine Ratio 20.1 (10-20); Creatinine Clr Calc Pharmacy 45.7 ml/min; Est GFR (African American) 50.8 ml/min; Est GFR (Non-African American) 43.8 ml/min; Magnesium 2.3 mg/dl (1.7-2.4); Phosphorus 2.9 mg/dl (2.5-4.9); Potassium 4.6 mmol/L (3.5-5.1)
[2023-08-29] MEDS ORDERED: INSULIN ASPART PER UNIT CHARGE SC SCH (16:30)
[2023-08-29] MEDS: INSULIN ASPART PER UNIT CHARGE SC STA (16:59)
[2023-08-29 20:47] LABS: BUN Creatinine Ratio 18.9 (10-20); Calcium 8.6 mg/dl (8.6-10.3); Creatinine Clr Calc Pharmacy 39.1 ml/min; Est GFR (Non-African American) 36.3 ml/min; Magnesium 2.3 mg/dl (1.7-2.4); Phosphorus 2.3 mg/dl (2.5-4.9); Potassium 4.5 mmol/L (3.5-5.1)
[2023-08-29] MEDS: LANTUS PER UNIT CHARGE SC SCH (21:12)
--- NOTE | 2023-08-29 21:27 | Billing Data ---
Date of Service August 29, 2023 Coding Level of Care Code 25226 INT INP/OBS CARE
[2023-08-29] MEDS ORDERED: DOCUSATE SODIUM 100 MG CAP PO PRN (21:34)
[2023-08-29] MEDS: METOPROLOL SUCC 50MG EXT REL TAB PO SCH (21:41)
[2023-08-29 23:34] LABS: BUN Creatinine Ratio 18.1 (10-20); Calcium 8.9 mg/dl (8.6-10.3); Creatinine Clr Calc Pharmacy 38.7 ml/min; Est GFR (African American) 41.5 ml/min; Est GFR (Non-African American) 35.8 ml/min; Magnesium 2.4 mg/dl (1.7-2.4); Phosphorus 2.8 mg/dl (2.5-4.9); Potassium 4.5 mmol/L (3.5-5.1)
[2023-08-30] MEDS: INSULIN ASPART PER UNIT CHARGE SC SCH (00:22)
[2023-08-30 05:59] LABS: Basophils # (auto) 0.05 K/uL (0.00-0.20); Basophils % (auto) 0.8 %; Eosinophils # (auto) 0.41 K/uL (0.00-0.50); Eosinophils % (auto) 6.6 %; Hematocrit (blood only) 32.4 % (42.0-52.0); Hemoglobin 11.4 g/dl (14.0-18.0); Immature Granulocytes # (auto) 0.02 K/uL (0.01-0.20); Immature Granulocytes % (auto) 0.3 %; Lymphocytes # (auto) 1.78 K/uL (1.20-3.40); Lymphocytes % (auto) 28.5 %; Mean Corpuscular Hemoglobin 34.3 pg (25.0-34.0); Mean Corpuscular Hgb Conc 35.2 g/dL (32.0-36.0); Mean Corpuscular Volume 97.6 fL (80.0-100.0); Mean Platelet Volume 10.4 fL (9.4-12.4); Monocytes # (auto) 0.48 K/uL (0.11-0.59); Monocytes % (auto) 7.7 %; Neutrophils % (auto) 56.1 %; Platelet Count 173 K/uL (130-400); RDW Coefficient of Variation 13.4 % (11.5-14.5); RDW Standard Deviation 48.6 fL (36.4-46.3); Red Blood Count 3.32 M/uL (4.70-6.10); White Blood Count 6.24 K/ul (4.8-10.8)
[2023-08-30 06:14] LABS: Albumin Globulin Ratio 1.1 (0.9-2); Albumin Level 3.3 gm/dl (3.4-5.0); BUN Creatinine Ratio 18.4 (10-20); Bilirubin,Total 0.5 mg/dl (0.2-1.0); Calcium 8.7 mg/dl (8.6-10.3); Creatinine Clr Calc Pharmacy 46.3 ml/min; Est GFR (African American) 51.6 ml/min; Est GFR (Non-African American) 44.5 ml/min; Globulin 3.1 gm/dl (2.5-4.0); Magnesium 2.3 mg/dl (1.7-2.4); Potassium 4.5 mmol/L (3.5-5.1); Total Protein 6.4 gm/dl (6.0-8.3)
--- NOTE | 2023-08-30 12:33 | Pharmacy Report ---
Pharmacy Glycemic Short Note 2 - Date of Service August 30, 2023 - Glycemic Short BSG Results (Last 24 hours): 08/29/23 08/29/23 08/29/23 14:39 15:24 16:52 Glucose 351 H* POC Glucose 275 H 416 H* 08/29/23 08/29/23 08/29/23 17:51 17:53 19:33 Glucose 349 H* POC Glucose 396 H* 381 H* 08/29/23 08/29/23 08/30/23 20:13 22:45 00:01 Glucose 198 H POC Glucose 321 H* 144 H 08/30/23 08/30/23 08/30/23 04:13 05:34 07:57 Glucose 188 H POC Glucose 144 H 266 H 08/30/23 08/30/23 11:59 12:02 Glucose POC Glucose 340 H* 321 H* OUTPATIENT ANTIDIABETIC REGIMEN: * metformin 500mg PO BID * HbA1c 12.2% (08/28/23) ASSESSMENT: 08/29: * Patient received total of 100 units of insulin yesterday, plus insulin infusion. Fasting BSG 188 mg/dL this AM, recheck 266 mg/dL with POC check. Planning to titrate up basal, will target 55-60 units of basal for today. Lunch BSG trending upward, will tighten further to 12/ CF/CR 08/28: * Norman is a 73 YOM admitted with weakness/shakiness/increased urination with a history of T2DM found to be in HHS. Subsequently he was started on fluids and an insulin infusion. Pharmacy has been consulted to assist with glycemic management. * Labs this AM normalized, and subsequently he was transitioned off of the insulin drip to SQ insulin. * Lantus given this AM, BSGs still slightly elevated at this time, not enough insulin drip overlap (recommended 2-6 hours), added basal scale to allow for Lantus to be held or up to a weight based stress of 3 * Novolog initiated at a weight based stress of 2 PLAN FOR INPATIENT GLYCEMIC CONTROL: * Hold outpatient oral diabetes medications * Basal insulin * Lantus 35 units this AM * Lantus 20-25 units HS * Bolus insulin * NovoLog per scale ACHS or Q6hrs while NPO * Goal Range: Low 110 mg/dL - High 140 mg/dL * Correction Factor: 12 mg/dL/unit * Nutritional / Prandial insulin per carb ratio of 1 unit per 4 grams CHO consumed
[2023-08-30] MEDS: LANTUS PER UNIT CHARGE SC ONE (13:01)
[2023-08-30] MEDS: LACTATED RINGER'S 1,000 ML IV ONE (13:03)
--- NOTE | 2023-08-30 18:42 | Billing Data ---
Date of Service August 30, 2023 Coding Level of Care Code 19985 IN/OBS DISCH 30 MIN/LESS
--- NOTE | 2023-08-30 22:10 | Discharge Summary ---
Date of Service August 30, 2023 Admission HPI Per Admitting Provider Patient is a 73-year-old male with past medical history of type 2 diabetes, BPH, hyperlipidemia, hypertension, and CKD who presents to the hospital with HHS. Patient started to have frequency in urination starting yesterday as well as rigors this morning. States that the tremor started this morning when he woke up. He also had tingling all over his body as well as increase in thirst. He currently takes 500 mg metformin twice daily. Reports no missing of doses. Does report about a 15 pound weight loss over the last 2 years. Denies any recent illnesses. Denies any cough, chest pain, nausea, vomiting, abdominal pain, diarrhea, or other urinary symptoms. Does state that he has been ingesting flavored ice over the past month. Will have about 10-12 servings of flavored ice a day during this time. Admission Exam Per Admitting Provider Constitutional: well-appearing, no acute distress HEENT: NCAT, no conjunctival injection CV: regular rhythm, no murmur appreciated, extremities well-perfused, no LE edema Resp: CTABL, no wheezes/rales/rhonchi appreciated, no increased work of breathing GI: soft, nondistended, nontender, BS normoactive MSK: no gross deformities appreciated Skin: warm, dry, no rash appreciated Neuro: alert, oriented, no focal neurologic deficit appreciated Principal Diagnosis Hyperosmolar, hyperglycemic state Discharge Exam Constitutional WD/WN, vitals as above Respiratory normal respiratory effort, lungs clear to auscultation Cardiovascular RRR, no murmur, no edema Extremities: normal capillary refill; no calf tenderness and no pedal edema Gastrointestinal (Abdomen) normal bowel sounds, soft, nontender, no hepatosplenomegaly Psychiatric A+Ox3, euthymic affect Discharge Data Allergies Allergy/AdvReac Type Severity Reaction Status Date / Time atorvastatin AdvReac Unknown MUSCLE Verified 08/28/23 21:38 ACHES chlorthalidone AdvReac Unknown GI Verified 08/28/23 21:38 SYMPTOMS,VOMITING hydrochlorothiazide AdvReac Unknown GI Verified 08/28/23 21:38 SYMPTOMS,VOMITING simvastatin AdvReac Unknown HEADACHE Verified 08/28/23 21:38 Consultations 08/28/23 23:37 ED Decision to Admit Stat Ordered Studies 08/28/23 22:57 CT abd pelvis wo con Stat 08/28/23 22:58 CT chest diagnostic wo con Stat Hospital Course (1) Hyperosmolar hyperglycemic state (HHS): (2) Type 2 diabetes mellitus: (3) Renal cell cancer: (4) Hypertension: (5) Hyperlipidemia: Plan 1) Hyperosmolar hyperglycemic state -Patient with a glucose of 1039 in the ED. Vital signs are stable. -Sodium of 124, creatinine of 2.45, lactate of 4.4, VBG of 7.37. -UA positive for 3+ glucose and trace blood. -CT abdomen pelvis showed nonobstructing renal calculi measuring up to 4 mm; Chest CT negative. -Patient has been mostly stable with his diabetes on metformin 500 mg twice nicanor y though the most likely trigger for his HHS at this time is due to doing 10-12 servings of flavored ice every day for the past month. -HHS protocol with sodium chloride 0.45% +20 mEq KCl and insulin started in the ED, continued at time of admission. -HHS goal of [id number]. -BMP, phosphorus, VBG, and magnesium every 4 hours; POC glucose every hour until at goal. -Blood cultures, no growth after 24 hrs -Pharmacy glycemic management consulted, had difficulty managing pt's blood sugars during hospital stay as his correction factor/sliding scale insulin and carb ratio seemed to be underestimated, probably due to change since previous admissions - Fluids: One half NSS +20 mEq KCl initially, discontinued now 2) T2DM -Hemoglobin A1C, 12.2 -Prior to episode, well-controlled with metformin 500 mg, BID --> may need to modify drug regimen going forward -Most likely HHS is secondary to a flavored ice ingestion as stated above. - Diabetes education consult placed - Discharged on 20 U glargine, subQ, daily and metformin, 500 mg, BID, PO - Patient should F/U with PCP to come up w/ plan to transition to PO only diabetic meds once A1C improves 3) AKIN/Hx of renal cell cancer - Noted, as above, follows w/ [facility] - Cr, 1.52 <-- 1.58 <-- 2.45 (baseline Cr, 1.45 - 1.60) - Will monitor creatinine with BMPs. 4) Hyperlipidemia - rosuvastatin, 10 mg, PO, daily - F/U w/ PCP to ensure LDL at goal of < 70 5) Hypertension - Held home irbesartan due to elevation of creatinine. - Can/should restart on losartan upon discharge, as renal protective for T2DM patients 6) Subclinical hypothyroidism - levothyroxine, 25 ug, daily, QAM Total Time Total Time Spent Total Time Spent (In Minutes): <30 Discharge Plan Discharge Items Patient Disposition: Home - Self-Care Reason For Visit: [facility] Discharge Diagnosis: Hyperosmotic Hyperglycemic Syndrome Activity: Resume your previous activity Non-emergency contact: Primary Care Provider Call non-emergency contact if: you have any medication questions and your symptoms worsen Follow-up/Referrals: Ace Corea MD [Primary Care Provider] - Diet: Carb Consistent or DM2 Addtl Attending Provider Instructions: You were admitted to the hospital for hyperosmotic hyperglycemic syndrome. You were treated with IV fluids, insulin drip and various forms of subcutaneous insulin, IV electrolyte replacement. A discharge summary will be sent to your primary care physician to ensure continuity of care. Please bring this discharge summary with you to your next office appointment so that your provider can review it at that time. Follow-up appointments: We have requested a follow-up appointment with your primary care physician within one week of discharge. Please call their office if you do not hear from them. Keep all your follow-up appointments as already scheduled. If you cannot make an appointment, notify your provider. Medications: Your medication list has been reviewed and reconciled upon discharge to ensure accuracy and continuity of care. An updated list of all your medications is included with your hospital discharge paperwork. Please review this list closely, and make note of any changes. We sent a new medication called glargine to your pharmacy. Take glargine 20 units daily. Take your medications as instructed; do not skip a dose of your medicines. Make sure all of your doctors know every medicine you are taking (including qyhh-ofs-ekleavz medicines, vitamins, and supplements). Call your primary care provider before taking any new medicines (including wocv-fyw-tzfvsws medicines, vitamins, and supplements), because some of these may interact with your current medications, or may make your symptoms worse. Tell your primary care provider if you cannot afford your medications. CONTACT YOUR PRIMARY CARE PROVIDER if you experience any of the following: nausea, vomiting, feeling weak or fatigued increased urination frequency, increased thirst, chills or rigors, Difficulty following your treatment plan, or difficulty taking medications CALL 911 OR GO TO THE EMERGENCY DEPARTMENT if you experience any of the following: Sudden, severe abdominal pain or nausea/vomiting Severe chest pain, or chest pain that radiates (moves) to your jaw or arm Sudden, severe shortness of breath or difficulty breathing Thank you for allowing us to participate in your care Pending Studies at Discharge: No Stand-Alone Forms: [facility], Smoking Cessation Medications and DC Order Prescriptions: New insulin glargine 100 unit/mL (3 mL) insulin pen 20 unit subcut DAILY 30 Days Qty: 6 0RF Continued allopurinol 300 mg tablet 300 mg PO QAM Qty: 90 3RF potassium citrate 15 mEq tablet extended release 15 meq PO DAILY Qty: 90 3RF levothyroxine 25 mcg tablet 25 mcg PO DAILY Qty: 30 5RF mometasone 0.1 % cream 1 applic TOP BID PRN (Reason: rash) Qty: 45 3RF irbesartan 300 mg tablet 300 mg PO QAM Qty: 90 3RF Hold Instructions: Home Medication placed on hold at Doctor's office (DME) blood-glucose meter [[employer] Skin Careuch Verio Reflect Start] Kit See Rx Instructions .Route Qty: 1 0RF Rx Instructions: As directed coenzyme Q10 10 mg capsule 10 mg PO DAILY docusate sodium [Colace] 100 mg capsule 100 mg PO BID PRN (Reason: constipation) Qty: 30 0RF Rx Instructions: Take twice daily for 2 weeks, then as needed thereafter furosemide 40 mg tablet 40 mg PO QAM Qty: 90 3RF metoprolol succinate 100 mg tablet extended release 24 hr 100 mg PO HS Qty: 90 3RF oxycodone-acetaminophen [Percocet] 5-325 mg tablet 1 tab PO Q6H PRN (Reason: pain) Qty: 20 0RF Patient Comments: only for kidney stones metformin 500 mg tablet 500 mg PO BID Qty: 180 3RF rosuvastatin 10 mg tablet 10 mg PO DAILY Qty: 90 3RF hydrocortisone 2 % Lotion 1 applic TOPICAL BID PRN (Reason: Rash) ketoconazole 2 % cream 1 appln TOP BID PRN (Reason: Rash) aspirin 81 mg Tablet,Delayed Release (Dr/Ec) 81 mg PO HS Rx Instructions: stop 04/01/22 for surgery multivitamin Tablet 1 tab PO QAM Discharge Orders: Discharge Order (Routine); Ordered 08/30/23 Ordered By: Son Ayers Admission Data Admit Date/Time: 08/29/23 01:34 Attending Provider: Morris Artis Admit Provider: Wang Mccarthy Primary Care Provider: Ace Corea Other Providers: Wallace Eng Other Interventions: Discharge Summary Assessment (RN) Last Done: 08/30/23 18:41 Supervising Physician Co-Signing Physician Notes I personally examined the patient and verified all montes points of history and exam, discussed case, and agree with decision making with Dr Jolley feeling better and would like to go home. rn diabetes educator present at the time that I see him. Vitals noted, in general he is awake and alert pleasant no distress. HEENT normocephalic atraumatic mucous membranes moist. Breathing unlabored no accessory muscle use good effort. Skin without rashes pallor or icterus. Neuro without focal deficits. Hyperosmolar hyperglycemia/hyperglycemic dehydrationrecent A1c was 7.4 just back in April, now the whole way up to 12.2suggesting massive lifestyle changewhich fits with his indulging in as many as a dozen [place] ices per day, which is an enormous sugar load almost certainly. Currently still probably has a degree of physiologic stress, and/or acute worsening of insulin resistance, but I suspect that with lifestyle change back to how he is eating in April, his medications will likely also be it will be reverted to how he was in April. Because of that, I do not want to send him home on a large and complicated regimen if we do not need to, and at the same time given that his sugars are still somewhat high, I doubt that we can quickly de-escalate to just his home metforminto that end we will send him home on a modest amount of basal insulin, with the hope that therapeutic lifestyle change gets him back to the good control on minimal meds that he was only 4 months ago. At the same time we will ask him to follow-up later in the weekand if his sugars are not improving, certainly we can build a true basal bolus insulin regimen if needed.
[2023-08-31] MEDS ORDERED: INSULIN ASPART PER UNIT CHARGE SC SCH
== END 2023-08-30 19:50 | disposition home or self-care (01) ==
LOC: ED 21:19 → INTOOBSV 08-29 01:34 → EDINP 08-29 01:34 → SUATTDRO 08-29 01:34 → 4W 08-29 03:27
DX: Z79.82 Long term (current) use of aspirin; E11.22 Type 2 diabetes mellitus with diabetic chronic kidney disease; Z88.8 Allergy status to other drugs, medicaments and biological substances; E78.5 Hyperlipidemia, unspecified; N17.9 Acute kidney failure, unspecified; Z79.890 Hormone replacement therapy; E03.9 Hypothyroidism, unspecified; Z79.899 Other long term (current) drug therapy; I12.9 Hypertensive chronic kidney disease with stage 1 through stage 4 chronic kidney disease, or unspecified chronic kidney disease; N18.9 Chronic kidney disease, unspecified; Z85.528 Personal history of other malignant neoplasm of kidney; C64.2 Malignant neoplasm of left kidney, except renal pelvis; Z79.84 Long term (current) use of oral hypoglycemic drugs; E11.00 Type 2 diabetes mellitus with hyperosmolarity without nonketotic hyperglycemic-hyperosmolar coma (NKHHC); N20.0 Calculus of kidney; K80.20 Calculus of gallbladder without cholecystitis without obstruction